=== PATIENT | female | born 1955 ===

== ENCOUNTER 2021-08-31 19:35 | Inpatient (IN) | payer MEDICARE, MEDICAID, SELFPAY ==
--- NOTE | ~2021-08-31 | XR_ITS ---
EXAMINATION: XR chest ET placement INDICATION: Endotracheal tube placement TECHNIQUE: Portable AP chest at 0626 hours COMPARISON: 0545 hours FINDINGS: The endotracheal tube has been inserted and ends approximately 3 cm above the partha. Diffu se opacities persist throughout all lung zones without significant change. There is no pleural effusi on or pneumothorax. The cardiomediastinal silhouette is stable. IMPRESSION: 1. Endotracheal tube inserted and ending approximately 3 cm above the partha. 2. Diffuse lung disease, consistent with pneumonia and/or pulmonary edema. Reviewed, dictated and finalized at location A. REEL CUTTER
--- NOTE | ~2021-08-31 | XR_ITS ---
EXAMINATION: XR chest 1V portable INDICATION: COVID pneumonia TECHNIQUE: Portable AP chest at 1323 hours COMPARISON: 09/02/2021 FINDINGS: The endotracheal tube ends approximately 2.2 cm above the partha. The nasogastric tube is f ollowed as far as the stomach. Its tip is beyond the inferior margin of the radiograph. Diffuse opaci ties persist throughout all lung zones with slight improvement. There is no pleural effusion or pneum othorax. The cardiomediastinal silhouette is normal. IMPRESSION: 1. Diffuse lung disease with interval improvement, consistent with pneumonia and/or pulmonary. Reviewed, dictated and finalized at location A. CH ENGINE OPTIMIZER IMPRESSION: 1. Diffuse lung disease with interval improvement, consistent with pneumonia an d/or pulmonary.
--- NOTE | ~2021-08-31 | XR_ITS ---
EXAMINATION: XR chest 1V portable DATE: 09/07/2021 10:29 INDICATION: COVID-19 pneumonia. TECHNIQUE: A single frontal view of the chest was obtained. COMPARISON: Chest single view 09/05/2021 FINDINGS: There are airspace and interstitial opacities throughout the lungs bilaterally. No pleural effusion or pneumothorax. Cardiomegaly is noted. The endotracheal tube tip is 3.6 cm above the partha . The nasogastric tube tip is beyond the inferior margin of the radiograph, but at least to the stoma ch. IMPRESSION: 1. Stable diffuse lung disease, consistent with COVID-19 pneumonia. 2. Cardiomegaly. Reviewed, dictated and finalized at location A. OMER SUPPORT AGENT
--- NOTE | ~2021-08-31 | US_ITS ---
EXAMINATION: US venous doppler LE EXAM DATE: 09/01/2021 10:13 INDICATION: Pulmonary embolism. TECHNIQUE: Multiple grayscale, color flow and Doppler images of the lower extremity deep venous syste ms bilaterally were obtained and reviewed. There is no prior study for comparison. FINDINGS: Right side: The right common femoral, femoral and profunda veins demonstrate normal color flow, respi ratory variation, augmentation and compressibility. Compressibility, color flow confirmed within the right popliteal, posterior tibial, peroneal, and greater saphenous veins. Left side: The left common femoral, femoral and profunda veins demonstrate normal color flow, respira tory variation, augmentation and compressibility. Compressibility, color flow confirmed within the l eft popliteal, posterior tibial, peroneal, and greater saphenous veins. IMPRESSION: 1. No lower extremity deep venous thrombosis bilaterally. Reviewed, dictated and finalized at location B. IANCE SERVICE SUPERVISOR
--- NOTE | ~2021-08-31 | XR_ITS ---
EXAMINATION: XR chest 1V portable DATE: 09/05/2021 10:45 INDICATION: COVID-19 pneumonia. TECHNIQUE: A single frontal view of the chest was obtained. COMPARISON: Chest single view 09/04/2021, chest CT 09/01/2021 FINDINGS: There are airspace and interstitial opacities throughout the lungs bilaterally. No pleural effusion or pneumothorax. Cardiomegaly is noted. The endotracheal tube tip is 2.3 cm above the partha . The nasogastric tube tip is beyond the inferior margin of the radiograph, but at least to the stoma ch. IMPRESSION: 1. Stable diffuse lung disease, consistent with COVID-19 pneumonia. 2. Cardiomegaly. Reviewed, dictated and finalized at location A. TH PROMOTION OFFICER
--- NOTE | ~2021-08-31 | XR_ITS ---
EXAMINATION: XR abdomen NG/feed tube insert INDICATION: OG placement TECHNIQUE: Portable AP KUB-NG at 0743 hours COMPARISON: 09/02/2021 FINDINGS: The endotracheal tube ends approximately 4.8 cm above the partha. The OG tube is in the sto mach. Diffuse interstitial and airspace opacities are present throughout all lung zones. Cardiomegaly is noted. Density in the right upper quadrant could reflect retained contrast material within a dila judi right collecting system. IMPRESSION: 1. OG tube in the stomach. 2. Diffuse lung disease, consistent with pneumonia/or pulmonary edema. Reviewed, dictated and finalized at location A. IANCE TESTER
--- NOTE | ~2021-08-31 | CT_ITS ---
EXAMINATION: CTA chest PE protocol DATE: 09/01/2021 18:37 LEADERSHIP DEVELOPMENT MANAGER INDICATION: Evaluate for pulmonary embolism. Shortness of breath. Covid. Cough. TECHNIQUE: Computed tomographic angiography (CTA) of the chest was performed with 100 mL Omnipaque-35 0 intravenous contrast. The dose-length product was 938.65 mGy-cm. Maximum intensity projection 3D-re constructions of the aorta and other arteries were constructed by the technologist on a separate work station. Automated exposure control and iterative reconstruction technique were employed. COMPARISON: Nuclear medicine pulmonary perfusion scan dated 08/31/2021 and chest x-ray dated 08/31/20 21. FINDINGS: Study is technically adequate without evidence for pulmonary embolism. Enlarged pulmonary a rteries. Cardiomegaly. No thoracic lymphadenopathy. No significant pleural or pericardial effusion. T here are gallstones. There is bilateral renal atrophy with nonobstructing left renal stones. There is extensive bilateral airspace disease with patchy configuration, compatible with pneumonia. IMPRESSION: 1. No evidence for pulmonary embolism. 2: Extensive patchy bilateral airspace disease, compatible with pneumonia. 3: Cardiomegaly. 4: Pulmonary arterial hypertension. 5: Cholelithiasis. 6: Severe bilateral renal atrophy with nonobstructing left renal stones. Reviewed, dictated and finalized at location A. ERSHIP DEVELOPMENT MANAGER
--- NOTE | ~2021-08-31 | NM_ITS ---
NM pulmonary perfusion INDICATION: Elevated d-dimer. Shortness of breath. TECHNIQUE: Ventilation scan, 3 mCi Tc 99m MAA was injected intravenously for perfusion images. Multi ple images were then acquired. COMPARISON: Chest x-ray dated 08/31/2021 FINDINGS: The comparison chest x-ray demonstrates extensive bilateral airspace disease, compatible wi th pneumonia. The perfusion scan demonstrates slight small and moderate size perfusion abnormalities of the left upper lobe with corresponding chest x-ray findings. No significant perfusion abnormalitie s of the right lung clear. IMPRESSION: 1: Small-moderate perfusion abnormalities of the left upper lobe with corresponding chest x-ray abnor malities. Intermediate probability for pulmonary embolism. Reviewed, dictated and finalized at location A. SUPPORT ENGINEER IMPRESSION: 1: Small-moderate perfusion abnormalities of the left upper lobe with correspon ding chest x-ray abnormalities. Intermediate probability for pulmonary embolism .
--- NOTE | ~2021-08-31 | XR_ITS ---
XR chest 1V portable 08/31/2021 19:58 Indication: Shortness of breath and cough. Covid. Procedure: AP portable chest Comparison: Comparison to multiple prior studies sequentially, with oldest reviewed study dated 01/28. Findings: Patchy bilateral airspace disease, compatible with pneumonia. Small left pleural effusion. No pneumothorax. No acute osseous abnormality. Impression: 1: Developing patchy bilateral pneumonia. Reviewed, dictated and finalized at location A. CIATE MEDIA DIRECTOR Impression: 1: Developing patchy bilateral pneumonia.
--- NOTE | ~2021-08-31 | XR_ITS ---
XR chest 1V portable 09/09/2021 10:46 Indication: Respiratory failure Procedure: AP portable chest Comparison: Comparison to multiple prior studies sequentially, with oldest reviewed study dated 08/19. Findings: Endotracheal tube tip 5.6 cm above the partha. NG tube in the stomach. Unchanged diffuse bi lateral airspace disease, compatible with pneumonia. Cardiomegaly. No significant effusion or pneumot horax. No acute osseous abnormality. Impression: 1: Stable diffuse bilateral airspace disease, compatible with pneumonia. Reviewed, dictated and finalized at location A. LLENCE LEADER Impression: 1: Stable diffuse bilateral airspace disease, compatible with pneumonia.
--- NOTE | ~2021-08-31 | XR_ITS ---
EXAMINATION: XR chest 1V portable INDICATION: COVID pneumonia, respiratory failure TECHNIQUE: Portable AP chest at 0958 hours COMPARISON: 09/03/2021 FINDINGS: The endotracheal tube ends approximately 3.1 cm above the partha. The nasogastric tube is f ollowed as far as the stomach. Its tip is beyond the inferior margin of the radiograph. Diffuse inter stitial and airspace opacities persist with slight worsening on the left. There is no pleural effusio n or pneumothorax. The cardiomediastinal silhouette is stable. IMPRESSION: 1. Diffuse lung disease with interval worsening on the left, consistent with pneumonia and/or pulmona ry edema. Reviewed, dictated and finalized at location A. PROTECTION ENGINEERING TECHNICIAN IMPRESSION: 1. Diffuse lung disease with interval worsening on the left, consistent with pn eumonia and/or pulmonary edema.
--- NOTE | ~2021-08-31 | XR_ITS ---
EXAMINATION: XR chest 1V portable INDICATION: Hypoxia TECHNIQUE: Portable AP chest at 0545 hours COMPARISON: 08/31/2021 FINDINGS: Diffuse airspace opacities persist throughout all lung zones with interval worsening. There is no pleural effusion or pneumothorax. The cardiomediastinal silhouette is normal. IMPRESSION: 1. Diffuse lung disease with interval worsening, consistent with pneumonia and/or pulmonary edema. Reviewed, dictated and finalized at location A. NEYMAN ELECTRICIAN PV INSTALLER IMPRESSION: 1. Diffuse lung disease with interval worsening, consistent with pneumonia and/ or pulmonary edema.
--- NOTE | ~2021-08-31 | XR_ITS ---
EXAMINATION: XR chest 1V portable DATE: 09/08/2021 10:58 INDICATION: Respiratory failure. TECHNIQUE: A single frontal view of the chest was obtained. COMPARISON: Chest single view 09/07/2021 FINDINGS: There are airspace and interstitial opacities throughout the lungs bilaterally. No pleural effusion or pneumothorax. Cardiomegaly is noted. The endotracheal tube tip is 6.6 cm above the partha . The nasogastric tube tip is beyond the inferior margin of the radiograph, but at least to the stoma ch. IMPRESSION: 1. Stable diffuse lung disease, consistent with COVID-19 pneumonia. 2. Cardiomegaly. Reviewed, dictated and finalized at location A. SETTER
[2021-08-31 19:36] VITALS: BP 111/53; PULSE 74; RESP 27; TEMP 37.9; O2SAT 82
[2021-08-31 19:47] VITALS: O2SAT 92
--- NOTE | 2021-08-31 19:50 | ED.GENADULT ---
HPI - General Adult General Chief complaint: Shortness of Breath/Dyspnea Stated complaint: hypoxic History of Present Illness HPI narrative: 66-year-old female presented to emergency department for evaluation of shortness of breath after suspected Covid exposure. Patient is normally on 2 to 3 L of oxygen at home. He states that the patient had been increasingly confused today and when they checked her oxygen it was in the 50s. For this reason family called EMS when EMS arrived they placed the patient on oxygen she was in the 80s on room air. Patient arrived to the emergency department with a nonrebreather saturating in the low 90s. Raquel states as the patient received more oxygen became less confused. Upon arrival to the emergency department patient was alert and appropriate. Patient did report associated shortness of breath but denies any chest pain. Related Data Allergies Allergy/AdvReac Type Severity Reaction Status Date / Time acetaminophen Allergy Mild Unknown Verified 08/31/21 19:50 codeine Allergy Mild Unknown Verified 08/31/21 19:50 propoxyphene Allergy Mild Unknown Verified 08/31/21 19:50 Review of Systems Review of Systems: CONSTITUTIONAL: Patient does report chills and subjective fever EYES: Denies visual changes, redness, or discharge. ENT: Denies rhinorrhea, congestion, sore throat, or otalgia. CARDIOVASCULAR: Denies chest pain, palpitations, or edema. RESPIRATORY: Does report worsening shortness of breath. GASTROINTESTINAL: Denies abdominal pain, nausea, vomiting, or diarrhea. GENITOURINARY: Denies dysuria or hematuria. SKIN: Denies rash or itching. MUSCULOSKELETAL: Denies back pain, joint pain, or myalgia. NEUROLOGIC: Denies headache, numbness, or weakness. PSYCHIATRIC: Did have some confusion but improved with oxygenation. Exam Narrative: APPEARANCE: Well appearing, no pain in distress, well-nourished. Head normocephalic atraumatic. EYES: PERRLA/EOMI, conjunctivae very clear. NOSE: Normal no drainage EARS:TMS clear Alicia Robin, with good light reflex. THROAT: Pharynx clear, no exudate. NECK: Supple. No adenopathy, no masses. RESPIRATORY: Airway patent, respirations nonlabored on the nonrebreather. Clear to auscultation bilaterally, no rales, rhonchi, wheezing. CARDIOVASCULAR: Regular rate and rhythm without murmurs rubs or gallops. ABDOMINAL: Soft, nontender, nondistended, no hepatosplenomegally MUSCULOSKELETAl: Moves all extremities. Strenght/ROM intact, No edema, No calf tenderness. NEURO: Alert. Cranial nerves II through XII intact. Good gait. Good coordination SKIN:: Warm, dry. Normal Color PSYCHIATRIC: Normal affect/mood Course Course Emergency Course: 66-year-old female presented emerge department for evaluation of worsening hypoxia at home. Patient oxygenation did improve when she was placed on the nonrebreather. Patient was transferred to heated high flow so she could eat. D-dimer was ordered and was elevated. Patient does have history of kidney transplant and was not suitable for CT with IV contrast. For this reason VQ scan was performed. VQ scan was resulted as intermediate probability and patient was started on 1 milligram per kilogram subcu Lovenox. Patient was updated on the results and plan for admission. Case was discussed with the hospitalist and they are comfortable with the plan for admission to IMU Vital Signs Vital signs: Vital Signs Temperature 100.2 F H 08/31/21 19:36 Pulse Rate 74 08/31/21 19:36 Respiratory Rate 27 H 08/31/21 19:36 Blood Pressure 111/53 L 08/31/21 19:36 Pulse Oximetry 82 L 08/31/21 19:36 Temperature 98.3 F 09/01/21 00:20 Pulse Rate 66 09/01/21 00:20 Respiratory Rate 23 H 09/01/21 00:20 Blood Pressure 129/66 09/01/21 00:20 Pulse Oximetry 90 09/01/21 00:50 Medical Decision Making [facility] Narrative Medical decision making narrative: Patient does report Covid exposure and a family member that tested positive. X-ray was concerning for Covid pne
[2021-08-31 20:14] LABS: Basophils Percent Auto 0.2 % (0.2-1.2); Hematocrit 37.4 % (37.0-47.0); Hemoglobin 12.1 g/dL (12.0-15.0); Immature Granulocyte Absolute 0.03 K/mm3 (0.00-0.031); Immature Granulocyte Percent A 0.6 % (0-0.5); Lymphocytes Absolute Auto 0.88 K/mm3 (0.9-3.2); Lymphocytes Percent Auto 17.1 % (18.3-44.2); Mean Corpuscular HGB Conc 32.4 g/dl (32-36); Mean Corpuscular Hemoglobin 31.1 pg (26-34); Mean Corpuscular Volume 96.1 fl (80-100); Mean Platelet Volume 10.5 fl (7.4-10.4); Monocytes Absolute Auto 0.5 K/mm3 (0.1-0.6); Monocytes Percent Auto 9.9 % (2.6-8.5); Neutrophils Absolute Auto 3.7 K/mm3 (1.3-6.7); Neutrophils Percent Auto 72.2 % (45.5-73.1); Platelet Count Result 168 k/mm3 (150-375); Red Blood Count 3.89 M/mm3 (4.2-5.4); Red Cell Distribution Width 13.5 % (11.5-14.5); White Blood Count 5.1 K/mm3 (4.5-10.0)
[2021-08-31 20:26] LABS: Alanine Aminotransferase 45 U/L (4-35); Alkaline Phosphatase 59 U/L (38-126); Anion Gap 14 mmol/L (8-16); Aspartate Amino Transferase 107 U/L (14-36); Bilirubin,Total 0.5 mg/dL (0.2-1.3); Blood Urea Nitrogen 26 mg/dL (7-17); Calcium 9.1 mg/dL (8.4-10.2); Carbon Dioxide 22 mmol/L (22-30); Chloride 99 mmol/L (98-107); Estimated CRCL calculation 55 ml/min; Estimated Glomerular Filt Rate 55; Glucose 132 mg/dL (65-110); Potassium 3.4 mmol/L (3.4-5.0); Sodium 135 mmol/L (137-145)
[2021-08-31 20:29] LABS: D Dimer 1.52 ug/mL (<0.48); Lactate Dehydrogenase 767 U/L (313-618)
[2021-08-31] MEDS: DEXAMETHASONE 2 MG TABLET 6 MG PO (20:38)
[2021-08-31 20:51] VITALS: BP 114/61; PULSE 73; RESP 23; O2SAT 92
[2021-09-01] VITALS (25 sets, daily range): BP systolic 106–151; BP diastolic 47–68; PULSE 52–82; RESP 20–34; TEMP 35.9–37.2; O2SAT 88–98; BMI 34.4
[2021-09-01] MEDS: ENOXAPARIN 100 MG/ML SYRINGE 94 MG SUB-Q (00:18)
--- NOTE | 2021-09-01 00:34 | PM.IMHP ---
H&P: HPI History of Present Illness Date/Time: 09/01/21 00:34 Chief Complaint: Shortness of breath Narrative: This is a 66-year-old female with past medical history significant for renal transplant, COPD, patient is also on CPAP at home, chronic hypoxic respiratory failure on 2-3 L supplemental oxygen by nasal cannula at home. Patient was brought to the emergency room via EMS after family became concerned for the patient's altered mental status she was confused hallucinating an a home O2 pulse ox showed desaturation into the 80s. On arrival to emergency room patient was on a non-rebreather mask saturating in the low 90s and still confused. At the time of my visit patient complaining of shortness of breath , cough. Patient is not able to give much history. Preliminary workup was significant for chest x-ray with diffuse bilateral lung infiltrates. Concerns were also for acute pulmonary embolism and patient underwent V/Q scan which was intermediate probability for acute pulmonary embolism. Decision has been made to admit the patient for further evaluation management and treatment. Review of Systems Review of Systems: The patient was brought to the emergency room due to altered mental status low oxygen saturation patient has been unable to give much history although she is more awake and alert however appears not to be fully aware of the events ROS unobtainable: Yes unobtainable due to medical condition PMFSH Family History Family History (Updated 09/01/21 @ 04:01 by Madalyn Portillo RN) Other Unknown family medical history Social History Social History Smoking status: Never smoker Alcohol intake: unknown Substance use: unknown Spiritual care concerns: No Meds Home Medications and Allergies Home Medications Medication Instructions Recorded Confirmed Type alprazolam 0.5 mg PO Q8H PRN 09/01/21 09/01/21 History amlodipine 10 mg PO QAM 09/01/21 09/01/21 History escitalopram oxalate 20 mg PO DAILY 09/01/21 09/01/21 History fluticasone propionate 2 spray INTRANASAL DAILY 09/01/21 09/01/21 History hydrochlorothiazide 25 mg PO DAILY 09/01/21 09/01/21 History hydrocodone-acetaminophen 1 tablet PO Q6H PRN 09/01/21 09/01/21 History losartan 50 mg PO DAILY 09/01/21 09/01/21 History mycophenolate sodium 360 mg PO BID 09/01/21 09/01/21 History omeprazole 20 mg PO DAILY 09/01/21 09/01/21 History oxybutynin chloride 5 - 10 mg PO HS 09/01/21 09/01/21 History potassium chloride 20 meq PO BID 09/01/21 09/01/21 History tacrolimus 1 mg PO BID 09/01/21 09/01/21 History umeclidinium-vilanterol [Anoro 1 inh INHALATION DAILY 09/01/21 09/01/21 History Ellipta] Allergies Allergy/AdvReac Type Severity Reaction Status Date / Time acetaminophen Allergy Mild Unknown Verified 08/31/21 19:50 codeine Allergy Mild Unknown Verified 08/31/21 19:50 propoxyphene Allergy Mild Unknown Verified 08/31/21 19:50 ibuprofen AdvReac Other Verified 09/01/21 02:19 naproxen AdvReac Other Verified 09/01/21 02:19 Vital Signs Vital Signs - 24 hr 08/31/21 19:36 08/31/21 19:47 08/31/21 20:51 Temperature 100.2 F H Pulse Rate 74 73 Respiratory Rate 27 H 23 H Blood Pressure 111/53 L 114/61 Pulse Oximetry 82 L 92 92 09/01/21 00:20 Temperature 98.3 F Pulse Rate 66 Respiratory Rate 23 H Blood Pressure 129/66 Pulse Oximetry 93 Exam Narrative: Patient is laying in [facility] Const: General: comfortable, well developed, alert, awake, acute distress mild and ill appearing Nutritional Appearance: average body habitus Orientation/consciousness: oriented to person and oriented to place Limitations: altered mental status Other: Somewhat delirious HENMT: Head: normal to inspection, normocephalic and atraumatic Ears: hearing grossly normal bilaterally General nose exam: Normal external nose present Face and sinus: normal facial exam Eyes: General: appearance normal, both eyes and all related structures Alignment and Position: alignment
--- NOTE | 2021-09-01 01:50 | PC.NURSE ---
This patient, Saira Lilly, was admitted to IMU Room 204-01. Patient/family oriented to hospital policies and general routines including ID bracelet, bed and alarms, visiting hours, pain management, procedures, bathroom and other care routines, personal items, smoking policy, room service/diet, and visiting hours. Information on how to activate the Rapid Response Team has been discussed. Patient/Family are encouraged to report perceived risks to care and to ask questions if they do not understand what they are told or what they should do.
[2021-09-01] MEDS: FUROSEMIDE INJ 40 MG/4 ML VIAL 10 MG IV PUSH (03:46)
[2021-09-01] MEDS: cefTRIAXone 2 GM in SODIUM CHLORIDE 0.9% IV 100 ML 200 ML IVPB (06:16)
[2021-09-01 06:50] LABS: Alanine Aminotransferase 56 U/L (4-35); Estimated CRCL calculation 68 ml/min; Estimated Glomerular Filt Rate > 60
[2021-09-01 07:03] LABS: NT Pro B Type Natriuretic Pept 717 pg/mL (5-100)
[2021-09-01 07:04] LABS: INR 1.1; Prothrombin Time 13.9 Seconds (11.1-14.7)
[2021-09-01] MEDS: UMECLIDINIUM/VILANTEROL 62.5-25 MCG ELLIPTA 1 PUFF INHALATION (08:34)
[2021-09-01] MEDS: POTASSIUM CHLORIDE 20 MEQ TABLET.ER PO ×2 (09:30→17:02)
[2021-09-01] MEDS: ESCITALOPRAM OXALATE 10 MG TABLET 20 MG PO (09:30)
[2021-09-01] MEDS: REMDESIVIR 200 MG/NS 250 ML 200 MG/250 ML BAG 250 MG IVPB (09:30)
[2021-09-01] MEDS: FLUTICASONE PROPIONATE 0.05% NA SPR 16 GM BTL (*BKC) 2 SPRAY NASAL (09:30)
[2021-09-01] MEDS: PANTOPRAZOLE 40 MG TABLET PO ×2 (09:30→17:02)
--- NOTE | 2021-09-01 09:43 | PM.IMPN ---
Progress Note: A&P Assessment and Plan (1) Acute and chronic respiratory failure with hypoxia: Code(s): J96.21 - Acute and chronic respiratory failure with hypoxia Status: Acute Assessment and Plan: Admit to IMU Placed on BiPAP Try and keep saturation 92-94% At baseline, patient is usually on 2-3 L by nasal cannula Continuous pulse ox Continuous telemetry Per currently patient is on BiPAP requiring very large volumes of oxygen. By virtue of her kidney transplant and immunosuppressive therapy is at very high risk and will consult the Pulmonary Service to help with her management. (2) Pneumonia due to COVID-19 virus: Code(s): U07.1 - COVID-19; J12.82 - Pneumonia due to coronavirus disease 2018 Status: Acute Assessment and Plan: Patient started on remdesivir and dexamethasone Added Zithromax and Rocephin for antibacterial coverage superinfection Patient is also on tacrolimus and mycophenolate mofetil. I have contacted the kidney transplant team at bedside spoke with Dr. Rosaura Mirza. We will hold the MMF for 2 weeks. Convalescent plasma Supportive care (3) Transplanted kidney: Code(s): Z94.0 - Kidney transplant status Status: Acute Assessment and Plan: Excellent allograft function with baseline creatinine of 0.8. Home regimen includes prednisone 5 mg p.o. daily, tacrolimus 1 mg p.o. b.i.d., and MMF 360 mg p.o. b.i.d.. Currently patient is acutely ill with a strong suspicion for an acute viral illness and possibly COVID-19 pneumonia. We will hold the MMF. For 2 weeks. Daily BMP Avoid nephrotoxins Patient is scheduled for kidney stone removal on October 08, 2021 at [place]. (4) COPD (chronic obstructive pulmonary disease): Code(s): J44.9 - Chronic obstructive pulmonary disease, unspecified Status: Acute Assessment and Plan: Start Pulmicort. Continue albuterol and ipratropium nebulization. Follow-up pulmonary recommendations. Breathing treatments (5) Pulmonary embolism: Qualifiers: Acute cor pulmonale presence: without acute cor pulmonale Chronicity: acute Pulmonary embolism type: unspecified Qualified Code(s): I26.99 - Other pulmonary embolism without acute cor pulmonale Code(s): I26.99 - Other pulmonary embolism without acute cor pulmonale Status: Acute Assessment and Plan: Patient with intermediate probability V/Q scan. Her kidney function function is adequate, with a creatinine of 0.8. We order this CT angiogram. Echocardiogram has been ordered and is pending at the time of this dictation. Continue Lovenox at therapeutic dose. Subjective Date/time seen: 09/01/21 09:43 Narrative.This is a 66-year-old female with past medical history significant for renal transplant, COPD, patient is also on CPAP at home, chronic hypoxic respiratory failure on 2-3 L supplemental oxygen by nasal cannula at home. Patient was brought to the emergency room via EMS after family became concerned for the patient's altered mental status she was confused hallucinating an a home O2 pulse ox showed desaturation into the 80s. On arrival to emergency room patient was on a non-rebreather mask saturating in the low 90s and still confused. At the time of my visit patient complaining of shortness of breath , cough. Patient is not able to give much history. Preliminary workup was significant for chest x-ray with diffuse bilateral lung infiltrates. Concerns were also for acute pulmonary embolism and patient underwent V/Q scan which was intermediate probability for acute pulmonary embolism. Decision has been made to admit the patient for further evaluation management and treatment. S: Patient was examined at the bedside. She is breathing comfortably on the BiPAP. She was complaining of nasal drip. No other active complaints. Review of Systems Review of Systems: All systems reviewed & are unremarkable except as noted in HPI and below Constitutional:
[2021-09-01] MEDS: predniSONE 5 MG TABLET PO (12:30)
--- NOTE | 2021-09-01 12:44 | PM.CNPUL ---
Assessment and Plan Assessment and plan (1) Hypoxia: Code(s): R09.02 - Hypoxemia Status: Acute Assessment and Plan: Patient has a history of renal transplantation on mycophenolate and tacrolimus and prednisone 5 mg p.o. q.day, carries a diagnosis of COPD on home oxygen and on CPAP at home. I have no medical records at our institution. Currently the patient is in hypoxic respiratory failure on BiPAP rate of 14, pressure is 12/8 and 90% FiO2. I will check a blood gas to assess her oxygenation and ventilation. Patient is currently being treated for bacterial pneumonia with ceftriaxone and azithromycin. Patient Has been exposed to COVID and is currently being treated for COVID pneumonia with dexamethasone, Remdesivir and convalescent plasma given that she is a renal transplant patient. her mycophenolate has been held after discussion was her renal transplant team. I agree with these treatments for now while waiting for her COVID RT PCR study to return. if her COVID test should return positive she would qualify for tocilizumab. Positive D dimer with intermediate perfusion scan. Agree with CTA. Will send influenza swab. An echocardiogram has been a ordered, her BNP is 717. Regarding her history of COPD she currently has no wheezes and I will continue her Anoro Ellipta at 1 puff q.day. Will follow with you. History of Present Illness History of Present Illness Consult date: 09/01/21 Requesting physician: Tenisha Ko MD Reason for consult: hypoxemia Chief complaint: PE, hypoxia, possible covid Narrative: 09/01/2021: This is a new Pulmonary consult for hypoxic respiratory failure 66-year-old woman with a history of renal transplant about 12 years ago, COPD on 2-3 L nasal cannula oxygen at home, on CPAP at home who was brought to the emergency department on 08/31 for altered mental status, shortness of breath, cough and hypoxemic respiratory failure. per the nursing report patient was exposed to family members that have COVID and the patient tells me her sister had a respiratory illness along with her over the last 3 or 4 days but the patient was unsure if the patient had COVID. The patient's cousin did have COVID. Patient had a white count of 5.1, creatinine of 1.00 a D-dimer 1.52. Patient had a V/Q scan was which was indeterminate for pulmonary embolism. Patient was started on dexamethasone empirically on 08/31 and REM test severe on 09/01. The renal consult team was contacted by the hospitalist and they recommended convalescent plasma which has been ordered. Her COVID RT PCR test is pending. Patient was also started on ceftriaxone and azithromycin. Patient was admitted to the floor and had worsening hypoxemic respiratory failure requiring BiPAP. I was consulted. Patient is currently on BiPAP with set rate of 14, pressures of 12/8, inspiratory time 0.8, 90% FiO2 with saturations 91% and a tidal volume of 517. Patient did say she is comfortable on these current BiPAP settings. Review of Systems Review of Systems: ROS unobtainable: Yes unobtainable due to medical condition PMFSH Family History Family History (Updated 09/01/21 @ 04:01 by Madalyn Portillo RN) Other Unknown family medical history Social History Social History Smoking status: Never smoker Alcohol intake: unknown Substance use: unknown Spiritual care concerns: No Meds Home Medications and Allergies Home Medications Medication Instructions Recorded Confirmed Type alprazolam 0.5 mg PO Q8H PRN 09/01/21 09/01/21 History amlodipine 10 mg PO QAM 09/01/21 09/01/21 History escitalopram oxalate 20 mg PO DAILY 09/01/21 09/01/21 History fluticasone propionate 2 spray INTRANASAL DAILY 09/01/21 09/01/21 History hydrochlorothiazide 25 mg PO DAILY 09/01/21 09/01/21 History hydrocodone-acetaminophen 1 tablet PO Q6H PRN 09/01/21 09/01/21 History losartan 50 mg PO DAILY 09/01/21 09/01/21 History mycophenolat
[2021-09-01 15:19] LABS: Alveolar/Arterial O2 Gradient 529.2 mmHg; Base Excess ABG 2.1 mEq/l (+/-2.0); Fractional Inspired Oxygen 90 %; HCO3 ABG 27.9 mEq/l (22.0-26.0); Oxygen Content ABG 16.7 %vol (16.0-22.0); Oxygen Saturation ABG 91.7 % (95.0-100.0); Oxyhemoglobin 91.1 % THb (90.0-100.0); PO2 ABG 63.3 mmHg (80.0-100.0); pH ABG 7.382 (7.350-7.450)
[2021-09-01 15:21] LABS: Device BIPAP; Expiratory Pressure 8 cmH2O; Inspiratory Pressure 12 cmH2O; Modified Allen's Test Pass; Site Drawn RIGHT RADIAL
[2021-09-01] MEDS: SODIUM CHLORIDE 0.9% IV 1,000 ML 100 ML IV CONT (15:34)
[2021-09-01] MEDS: ALPRAZolam (*CRX) 0.5 MG TABLET PO (20:36)
[2021-09-01] MEDS: OXYBUTYNIN CHLORIDE 5 MG TABLET 10 MG PO (20:36)
[2021-09-01] MEDS: ENOXAPARIN 40 MG/0.4 ML SYRINGE SUB-Q (20:37)
[2021-09-02] VITALS (39 sets, daily range): BP systolic 70–130; BP diastolic 40–61; PULSE 43–84; RESP 16–45; TEMP 36.2–37.9; O2SAT 69–100; BMI 33.4
[2021-09-02 02:02] LABS: SARS-CoV-2 RNA PCR Positive
[2021-09-02] MEDS: cefTRIAXone 2 GM in SODIUM CHLORIDE 0.9% IV 100 ML 200 ML IVPB (04:55)
[2021-09-02 05:29] LABS: Alveolar/Arterial O2 Gradient 623.7 mmHg; Base Excess ABG -2.2 mEq/l (+/-2.0); Carboxyhemoglobin 0.3 % THb (0-2.0); Fractional Inspired Oxygen 100 %; HCO3 ABG 23.4 mEq/l (22.0-26.0); Methemoglobin ABG 0.3 %THb (0-1.5); Oxygen Content ABG 14.6 %vol (16.0-22.0); PCO2 ABG 43.3 mmHg (35.0-45.0); PO2 FiO2 Ratio Arterial Blood 0.46 %; Reduced Hemoglobin 19.6 %THb (0-5.0); pH ABG 7.351 (7.350-7.450)
[2021-09-02 05:30] LABS: Oxygen Saturation ABG 79.8 % (95.0-100.0)
[2021-09-02 05:31] LABS: Device BIPAP; Oxyhemoglobin 79.8 % THb (90.0-100.0); Site Drawn RIGHT RADIAL
--- NOTE | 2021-09-02 06:17 | PC.NURSE ---
patient o2 sats started to drop and maintain in the high 70's, low 80's since a little after 5am. patient has been up and down on o2 sats all night. patient was starting to be restless, respirations in the upper 30's to low 40's. dr zapata is aware and in room with respiratory therapy to try to improve o2 status by changing up the settings on bipap. patient still was not recovering. stat abg's charted and stat cxray was done. dr zapata called dr forde from er to intubate patient. he spoke with the intisivist and they decided to move to icu for intubation. spoke with daughter and she wanted her moved to [place]. she felt like we are not able to properly treat covid patients here.
[2021-09-02] MEDS: FENTANYL 2,500MCG/NS250ML(*CRX 2,500 MCG/250 ML BAG IV CONT (06:25)
[2021-09-02] MEDS: MIDAZOLAM 100MG/NS 100ML(*CRX) 100 MG/100 ML BAG IV CONT (06:25)
--- NOTE | 2021-09-02 06:40 | ED.PROCEDURE ---
Procedures Intubation Intubation Date: 09/02/21 Intubation Time: 06:15 Consent: Verbal consent obtained Sedative: etomidate Mg given: 40 Paralytic: succinylcholine Mg given: 150 Laryngoscope: fiber optic video scope ET tube size: 7.5 Tube secured depth (cm): 23 Tube secured location: teeth Tube placement confirmation: visualized tube passing through cords, equal breath sounds bilaterally, no breath sounds over epigastrium and confirmation by capnometry Patient tolerated procedure: well Intubation complications: none Additional comments: Is counseled at bedside for patient and respiratory distresss. She has a known Covid positive patient with a history of COPD and renal transplant immune modulators. Patient's had increased respiratory effort this morning with limited benefits from CPAP patient continued to saturate into 70s. Given her respiratory distress was called to the bedside for intubation. Patient was given 30 of etomidate and 100 of succinylcholine initial [address] Diaz. It was a difficult airway due to body habitus. Patient began waking up she was given additional 10 of etomidate and 50 of succinylcholine. I performed the third attempt with successful intubation. Portable x-ray obtained ET tube appeared high after portable x-ray is obtained ET tube was moved 1 cm deeper. This was consulted who will assist with sedation and ventilation management.
--- NOTE | 2021-09-02 06:49 | P.PNCROSS_ITS ---
Event Note Event Note Event Note: Called by RN approximately at around 6:00 a.m. for hypoxia which started all of sudden down to 80s patient on 100% FiO2 BiPAP at 12/8 patient with mild to moderate respiratory distress. BiPAP settings were changed to improve ventilation by changes setting to 16/8 however patient remained hypoxic. ABG with PO2 of 46 chest x-ray with diffuse bilateral opacities which has worsened. She also has tested positive for COVID. Discussed with the patient with regard to intubation and mechanical ventilation. She is agreeable with the intubation if needed. Discussed with chief human resources officer Dr. Mistry and moved the patient to the ICU 5. Dr. Harrington in the ER was contacted for emergent intubation. Patient was placed on mechanical ventilation and was sedated with fentanyl and Versed drip. Dr. Mistry he was updated on her status. Critical care time 45 minutes
[2021-09-02 07:02] LABS: Basophils Percent Auto 0.2 % (0.2-1.2); Hematocrit 39.2 % (37.0-47.0); Hemoglobin 12.2 g/dL (12.0-15.0); Immature Granulocyte Absolute 0.04 K/mm3 (0.00-0.031); Immature Granulocyte Percent A 0.6 % (0-0.5); Lymphocytes Absolute Auto 0.58 K/mm3 (0.9-3.2); Lymphocytes Percent Auto 8.8 % (18.3-44.2); Mean Corpuscular HGB Conc 31.1 g/dl (32-36); Mean Corpuscular Hemoglobin 31.1 pg (26-34); Mean Platelet Volume 10.7 fl (7.4-10.4); Monocytes Absolute Auto 0.4 K/mm3 (0.1-0.6); Monocytes Percent Auto 5.6 % (2.6-8.5); Neutrophils Absolute Auto 5.6 K/mm3 (1.3-6.7); Neutrophils Percent Auto 84.8 % (45.5-73.1); Platelet Count Result 170 k/mm3 (150-375); Red Blood Count 3.92 M/mm3 (4.2-5.4); Red Cell Distribution Width 13.8 % (11.5-14.5); White Blood Count 6.6 K/mm3 (4.5-10.0)
[2021-09-02] MEDS: SODIUM CHLORIDE 0.9% IV 1,000 ML 999 ML IV CONT ×2 (07:30→10:00)
--- NOTE | 2021-09-02 07:45 | PC.NURSE ---
This patient, Saira Lilly, was received from [ [phone]] on 09/02/21 at 0605. Patient/family oriented to unit policies and routines
--- NOTE | 2021-09-02 07:45 | PC.NURSE ---
Patient brought over on BIPAP from IMU, Respiratory, Dr Lo and Dr Harrington in room to intubate.
[2021-09-02] MEDS: RAPID SEQUENCE INTUBATION KIT 1 EACH (07:50)
[2021-09-02] MEDS: CISATRACURIUM BESYLATE 200 MG in DEXTROSE 5% 80 ML 8.21 ML IV CONT ×2 (08:29→17:20)
[2021-09-02] MEDS: CISATRACURIUM BESYLATE 20 MG/10 ML VIAL 13.7 MG IV PUSH (08:30)
[2021-09-02] MEDS: NOREPINEPHRINE 8 MG/D5W 250 ML 8 MG/250 ML BAG 9.38 MG IV CONT (09:45)
[2021-09-02 10:08] LABS: Alveolar/Arterial O2 Gradient 578.6 mmHg; Base Excess ABG -1.8 mEq/l (+/-2.0); Fractional Inspired Oxygen 100 %; HCO3 ABG 23.3 mEq/l (22.0-26.0); Oxygen Content ABG 16.5 %vol (16.0-22.0); Oxyhemoglobin 95.4 % THb (90.0-100.0); PCO2 ABG 40.5 mmHg (35.0-45.0); PO2 ABG 93.9 mmHg (80.0-100.0); PO2 FiO2 Ratio Arterial Blood 0.94 %; Total Hemoglobin 12.2 g/dL (12.0-18.0); pH ABG 7.377 (7.350-7.450)
[2021-09-02 10:09] LABS: Arterial Blood Gas Ventilator rate 14 /MIN; Device VENTILATOR; Modified Allen's Test Pass; Site Drawn RIGHT RADIAL
[2021-09-02 10:10] LABS: Arterial Blood Gas PEEP 14 cmH2O; Arterial Blood Gas Pressure Support 0 cmH2O; Arterial Blood Gas Tidal Volume 350 ml; Arterial Blood Gas Vent Mode CMV; Peak Inspiratory Pressure 0 cmH2O
--- NOTE | 2021-09-02 10:11 | PM.PNPUL ---
Progress Note: A&P Assessment and Plan (1) Hypoxia: Code(s): R09.02 - Hypoxemia Status: Acute Assessment and Plan: 09/01 Patient has a history of renal transplantation on mycophenolate and tacrolimus and prednisone 5 mg p.o. q.day, carries a diagnosis of COPD on home oxygen and on CPAP at home. I have no medical records at our institution. Currently the patient is in hypoxic respiratory failure on BiPAP rate of 14, pressure is 12/8 and 90% FiO2. I will check a blood gas to assess her oxygenation and ventilation. Patient is currently being treated for bacterial pneumonia with ceftriaxone and azithromycin. Patient Has been exposed to COVID and is currently being treated for COVID pneumonia with dexamethasone, Remdesivir and convalescent plasma given that she is a renal transplant patient. her mycophenolate has been held after discussion was her renal transplant team. I agree with these treatments for now while waiting for her COVID RT PCR study to return. if her COVID test should return positive she would qualify for tocilizumab. Positive D dimer with intermediate perfusion scan. Agree with CTA. Negative influenza swab. An echocardiogram has been a ordered, her BNP is 717. Regarding her history of COPD she currently has no wheezes and I will continue her Anoro Ellipta at 1 puff q.day. 09/02 Patient is COVID positive and now intubated, paralyzed and in the prone position. ventilator management per the nailing machine feeder. Her Remdesivir and dexamethasone have been Restarted. Patient is Immunocompromised so tocilizumab or baricitinib will not be given. patient is Immunocompromised and NIH current treatment guidelines recommend neither for or against convalescent plasma. I have discussed this with the nailing machine feeder who will consider this treatment. Discussed with Dr. Mistry, will sign off for now, call with any questions Subjective Date/time seen: 09/02/21 10:11 Interval history: 09/01/2021: This is a new Pulmonary consult for hypoxic respiratory failure 66-year-old woman with a history of renal transplant about 12 years ago, COPD on 2-3 L nasal cannula oxygen at home, on CPAP at home who was brought to the emergency department on 08/31 for altered mental status, shortness of breath, cough and hypoxemic respiratory failure. per the nursing report patient was exposed to family members that have COVID and the patient tells me her sister had a respiratory illness along with her over the last 3 or 4 days but the patient was unsure if the patient had COVID. The patient's cousin did have COVID. Patient had a white count of 5.1, creatinine of 1.00 a D-dimer 1.52. Patient had a V/Q scan was which was indeterminate for pulmonary embolism. Patient was started on dexamethasone empirically on 08/31 and REM test severe on 09/01. The renal consult team was contacted by the hospitalist and they recommended convalescent plasma which has been ordered. Her COVID RT PCR test is pending. Patient was also started on ceftriaxone and azithromycin. Patient was admitted to the floor and had worsening hypoxemic respiratory failure requiring BiPAP. I was consulted. Patient is currently on BiPAP with set rate of 14, pressures of 12/8, inspiratory time 0.8, 90% FiO2 with saturations 91% and a tidal volume of 517. Patient did say she is comfortable on these current BiPAP settings. ABG 7.38/48/63. 09/02 patient had worsening hypoxemia overnight and is now intubated and in the prone position in the intensive care unit. Patient is COVID positive and her Remdesivir and dexamethasone have been Restarted. Patient is Immunocompromised so tocilizumab or baricitinib will not be given. Review of Systems Review of Systems: ROS unobtainable: Yes unobtainable due to endotracheal tube Exam Narrative: intubated and paralyzed inprovne position Const: General: no acute distress Neck: Neck: no JVD Resp: Auscultation: crackles, no rales, no r
[2021-09-02] MEDS: DEXAMETHASONE SOD PHOS INJ 4 MG/ML VIAL 6 MG IV PUSH (11:13)
--- NOTE | 2021-09-02 11:13 | WPDCNINT ---
Assessment and Plan Assessment and plan (1) Acute and chronic respiratory failure with hypoxia: Code(s): J96.21 - Acute and chronic respiratory failure with hypoxia Status: Acute Assessment and Plan: Acute Respiratory failure secondary to COVID-19 Intubated 09/02 Vent settings reviewed. I have decreased tidal volume to 350, increase rate to 22, peep is at 14 and FiO2 is at 100% Patient has been placed in prone position Sedated with Versed and fentanyl. Chemically paralyzed with Nimbex infusion Continue full mechanical ventilation support to prevent hypoxemia/hypercarbia and end organ damage. ABG and PCXR reviewed Low tidal volume ventilation strategy to prevent volutrauma Bronchodilators (2) Pneumonia due to COVID-19 virus: Code(s): U07.1 - COVID-19; J12.82 - Pneumonia due to coronavirus disease 2018 Status: Acute Assessment and Plan: SARS-CoV-2 PCR positive 08/31 on presentation Patient is in Airborne, Droplet and Contact Isolation Continue dexamethasone , remdesivir Continue antibiotics for empiric bacterial coverage with Rocephin azithromycin Follow inflammatory periodically I discussed case with Pulmonary Dr. Venegas. We discussed options of Baricitinib and Actemra but since patient is already Immunocompromised, will hold at this time (3) COPD (chronic obstructive pulmonary disease): Code(s): J44.9 - Chronic obstructive pulmonary disease, unspecified Status: Acute Assessment and Plan: Currently on mechanical ventilation Bronchodilators Also on steroids for COVID-19 (4) Transplanted kidney: Code(s): Z94.0 - Kidney transplant status Status: Acute Assessment and Plan: Continue Tacrolimus Prednisone has been changed to dexamethasone Mycophenolate was held as per consultation with Transplant pc support specialist at [facility] for next 2 weeks (5) Hypotension: Code(s): I95.9 - Hypotension, unspecified Status: Acute Assessment and Plan: Likely secondary to sedation and hypovolemia IV fluid bolus Levophed infusion Additional Plan DVT prophylaxis -Lovenox Stress ulcer prophylaxis -PPI Nutrition -start Tube Feeds Code Status -patient at this time is full code but her niece who is a POA states that patient may have advance directive stating that she is DNR. He is going to contact her primary care physician to obtain a copy of her advance directive and also look at home see if he can find a copy of advance directive. At this time patient is full code I updated her with overnight events, patient's current status and treatment plan. I answered all their questions Total Critical Care Time - 35 minutes except separately billed procedures Due to a high probability of clinically significant, life threatening deterioration, the patient required my highest level of preparedness to intervene emergently and I personally spent this critical care time directly and personally managing the patient. This critical care time included obtaining a history; examining the patient; pulse oximetry; ordering and review of studies; arranging urgent treatment with development of a management plan; evaluation of patient's response to treatment; frequent reassessment; and discussions with other providers. It was exclusive of separately billable procedures and treating other patients and teaching time. Please see Assessment and Plan section and the rest of the note for further information on patient assessment and treatment Frame Hand Consult Note Consult date: 09/02/21 HPI: Saira Lilly is a 66 year old female with a history of renal transplant about 12 years ago, COPD on 2-3 L nasal cannula oxygen at home, on CPAP at home who was brought to the emergency department on 08/31 for altered mental status, shortness of breath, cough and hypoxemic respiratory failure. Patient as per her niece is not vaccinated against COVID. She was found to be positive for COVID-19 and admitted with COVI
[2021-09-02] MEDS: ENOXAPARIN 40 MG/0.4 ML SYRINGE SUB-Q ×2 (11:14→21:01)
--- NOTE | 2021-09-02 11:38 | WPDPROCEDUR ---
Procedures Central Line Placement Right Femoral: Central Line Date: 09/02/21 Central Line Time: 09:00 Performed Emergently - Given emergent patient condition, temporal constraints may have precluded informed consent.: Yes Consent: atient also had developed hypotension post intubation was given 1 L saline bolus.Patient had poor IV access hence an emergent right femoral central venous catheter was placed prior to placing patient in prone position as I anticipated multiple infusions including sedation neuromuscular korey and vasopressor that was going to be needed for management Time Out Performed: Yes Patient Position: supine Patient placed on monitor/pulse ox: Yes Provider Prep: mask, sterile gown, sterile gloves, Max. sterile barrier precautions, cap and hand hygiene with conventional soap/water or alcohol based hand rub Central line prep: 2% Chlorhexidine scrub Sterile US Technique with sterile gel/sterile probe covers: Yes Central line lumen inserted: triple Length (cm): 16 Depth of Insertion (cm): 15 Post Procedure: sutured in place, good blood return, all ports aspirated, flushed, capped, transparent dressing, hemostatic product and aseptic technique maintained throughout procedure Patient tolerated procedure: well Complications: none
[2021-09-02 11:43] LABS: Anion Gap 7 mmol/L (8-16); Blood Urea Nitrogen 33 mg/dL (7-17); CRP 7.3 mg/dL (<1.0); Calcium 8.2 mg/dL (8.4-10.2); Carbon Dioxide 25 mmol/L (22-30); Chloride 109 mmol/L (98-107); Estimated CRCL calculation 67 ml/min; Estimated Glomerular Filt Rate > 60; Glucose 133 mg/dL (65-110); Potassium 3.8 mmol/L (3.4-5.0); Sodium 141 mmol/L (137-145)
[2021-09-02] MEDS: MINERAL OIL/WHITE PETROLATUM OINTMENT 1 APPLIC EACH EYE ×2 (12:34→21:01)
[2021-09-02 12:35] LABS: Alanine Aminotransferase 42 U/L (4-35)
[2021-09-02] MEDS: REMDESIVIR 100 MG/NS 250 ML 100 MG/250 ML BAG 250 MG IVPB (13:41)
[2021-09-02 14:22] LABS: Influenza Control Positive
--- NOTE | 2021-09-02 15:39 | PHAR ---
HOME MEDICATION VERIFIED BY PHARMACY: TACROLIMUS 1MG CAPSULES 1 CAP PO BID [id number]
[2021-09-02] MEDS: CENTRAL LINE FLUSH 10 ML IV PUSH ×2 (18:05→21:01)
[2021-09-02] MEDS: PANTOPRAZOLE SODIUM IV 40 MG VIAL IV PUSH (21:00)
[2021-09-03] VITALS (27 sets, daily range): BP systolic 99–167; BP diastolic 53–70; PULSE 42–77; RESP 22–24; TEMP 36.1–36.6; O2SAT 91–100
--- NOTE | 2021-09-03 | ECHO_ITS ---
Patient Info Name: Saira Lilly Age: 66 years : 1955 Gender: Female Ht: 65 in Wt: 207 lbs BSA: 2.11 m2 HR: 61 bpm BP: 99 / 53 mmHg Exam Date: 09/03/2021 10:56 AM Exam Location: [facility] Pulmonary Patient Status: Inpatient Admit Date: 08/31/2021 Staff Ordering Physician: Naz Beard MD Sustainable Communities Designer: Geraldo Puckett, LEIDA, RT Attending Provider: Naz eBard MD Referring Physician: Kisha MAGAÑA; Exam Type: CA echo doppler color flow Study Info Indications I26.99 - Other pulmonary embolism without acute cor pulmonale Complete two-dimensional, color flow and Doppler transthoracic echocardiogram is performed. Strain analysis performed. Summary 1. Complete two-dimensional, color flow and Doppler transthoracic echocardiogram is performed. 2. Left ventricular systolic function is normal, estimated at 55-60%. 3. There is moderately increased left ventricular wall thickness. 4. The left ventricular diastolic function is grade II diastolic dysfunction. 5. Left atrial chamber dimension is mildly enlarged. 6. There is mild aortic valve calcification. 7. There is mild mitral valve regurgitation. 8. There is mild tricuspid valve regurgitation. 9. Moderate pulmonary hypertension, estimated pulmonary arterial systolic pressure is 48 mmHg. 10. There is trivial pericardial effusion. Left Ventricle Left ventricular chamber dimension is normal. Left ventricular systolic function is normal, estimated at 55-60%. There is moderately increased left ventricular wall thickness. Left ventricular septal wall motion is normal. The left ventricular diastolic function is grade II diastolic dysfunction. Global longitudinal strain is normal at -19 %. Right Ventricle Right ventricular chamber dimension is normal. Right ventricular systolic function is normal. Left Atria Left atrial chamber dimension is mildly enlarged. Right Atria Right atrial chamber dimension is normal. Atrial Septum Intact interatrial septum visualized by color flow imaging. Aortic Valve The aortic valve is trileaflet. There is no aortic valve stenosis. There is no aortic valve regurgitation. There is mild aortic valve calcification. Pulmonic Valve The pulmonic valve is normal. There is no pulmonic valve stenosis. There is no pulmonic regurgitation. Mitral Valve The mitral valve has normal leaflets. There is no mitral valve stenosis. There is mild mitral valve regurgitation. Tricuspid Valve The tricuspid valve leaflets are normal. There is no significant tricuspid valve stenosis. There is mild tricuspid valve regurgitation. Moderate pulmonary hypertension, estimated pulmonary arterial systolic pressure is 48 mmHg. Pericardium/Pleural The pericardium appears normal. There is trivial pericardial effusion. Inferior Vena Cava Normal inferior vena cava with <50% collapse upon inspiration consistent with elevated right atrial pressure, 10 mmHg. Aorta The aortic root size at the sinus of Valsalva is normal. The prox ascending aorta size is normal. Left Ventricular Outflow Tract Name Value Normal LVOT 2D LVOT Diameter 2.0 cm LVOT Doppler
[2021-09-03] MEDS: cefTRIAXone 2 GM in SODIUM CHLORIDE 0.9% IV 100 ML 200 ML IVPB (05:13)
[2021-09-03 05:37] LABS: Hemoglobin 11.8 g/dL (12.0-15.0); Immature Granulocyte Absolute 0.03 K/mm3 (0.00-0.031); Immature Granulocyte Percent A 0.8 % (0-0.5); Lymphocytes Percent Auto 10.6 % (18.3-44.2); Mean Corpuscular HGB Conc 31.9 g/dl (32-36); Mean Corpuscular Hemoglobin 31.5 pg (26-34); Mean Corpuscular Volume 98.7 fl (80-100); Mean Platelet Volume 10.6 fl (7.4-10.4); Monocytes Absolute Auto 0.4 K/mm3 (0.1-0.6); Monocytes Percent Auto 11.1 % (2.6-8.5); Neutrophils Absolute Auto 2.9 K/mm3 (1.3-6.7); Neutrophils Percent Auto 77.5 % (45.5-73.1); Platelet Count Result 161 k/mm3 (150-375); Red Blood Count 3.75 M/mm3 (4.2-5.4); Red Cell Distribution Width 13.9 % (11.5-14.5); White Blood Count 3.8 K/mm3 (4.5-10.0)
[2021-09-03 05:47] LABS: Alanine Aminotransferase 37 U/L (4-35); Albumin Level 3.4 g/dL (3.5-5.1); Alkaline Phosphatase 61 U/L (38-126); Anion Gap 7 mmol/L (8-16); Aspartate Amino Transferase 80 U/L (14-36); Bilirubin,Total 0.4 mg/dL (0.2-1.3); Blood Urea Nitrogen 26 mg/dL (7-17); Calcium 9.1 mg/dL (8.4-10.2); Carbon Dioxide 29 mmol/L (22-30); Chloride 110 mmol/L (98-107); Estimated CRCL calculation 88 ml/min; Estimated Glomerular Filt Rate > 60; Glucose 169 mg/dL (65-110); Magnesium 2.1 mg/dL (1.6-2.3); Sodium 146 mmol/L (137-145)
[2021-09-03 05:58] LABS: Alveolar/Arterial O2 Gradient 383.8 mmHg; Fractional Inspired Oxygen 70 %; HCO3 ABG 26.3 mEq/l (22.0-26.0); Modified Allen's Test Unable to perform; Oxygen Content ABG 13.4 %vol (16.0-22.0); Oxygen Saturation ABG 93.2 % (95.0-100.0); Oxyhemoglobin 90.6 % THb (90.0-100.0); PCO2 ABG 44.6 mmHg (35.0-45.0); PO2 ABG 67.4 mmHg (80.0-100.0); PO2 FiO2 Ratio Arterial Blood 0.96 %; Site Drawn RIGHT RADIAL; Total Hemoglobin 10.5 g/dL (12.0-18.0); pH ABG 7.388 (7.350-7.450)
[2021-09-03 05:59] LABS: Arterial Blood Gas PEEP 14 cmH2O; Arterial Blood Gas Tidal Volume 350 ml; Arterial Blood Gas Vent Mode CMV; Arterial Blood Gas Ventilator rate 22 /MIN; Device VENTILATOR
[2021-09-03] MEDS: CISATRACURIUM BESYLATE 200 MG in DEXTROSE 5% 80 ML 8.21 ML IV CONT ×2 (06:22→20:39)
[2021-09-03] MEDS: CENTRAL LINE FLUSH 10 ML IV PUSH ×4 (06:23→20:42)
[2021-09-03 08:16] LABS: Expiratory Pressure 8 cmH2O; Inspiratory Pressure 12 cmH2O
[2021-09-03] MEDS: ENOXAPARIN 40 MG/0.4 ML SYRINGE SUB-Q ×2 (08:46→20:41)
[2021-09-03] MEDS: DEXAMETHASONE SOD PHOS INJ 4 MG/ML VIAL 6 MG IV PUSH (08:46)
[2021-09-03] MEDS: PANTOPRAZOLE SODIUM IV 40 MG VIAL IV PUSH ×2 (08:47→20:42)
[2021-09-03] MEDS: MINERAL OIL/WHITE PETROLATUM OINTMENT 1 APPLIC EACH EYE (08:47)
[2021-09-03] MEDS: REMDESIVIR 100 MG/NS 250 ML 100 MG/250 ML BAG 250 MG IVPB (10:17)
--- NOTE | 2021-09-03 10:56 | WPDINTPN ---
Progress Note: A&P Assessment and Plan (1) Acute and chronic respiratory failure with hypoxia: Code(s): J96.21 - Acute and chronic respiratory failure with hypoxia Status: Acute Assessment and Plan: Acute Respiratory failure secondary to COVID-19 Intubated 09/02 Vent settings reviewed. Currently tidal volume to 350, increase rate to 22, peep is at 14 and FiO2 is at 70% Continue daily 18 are ventilation in prone position Sedated with Versed and fentanyl. Chemically paralyzed with Nimbex infusion Continue full mechanical ventilation support to prevent hypoxemia/hypercarbia and end organ damage. ABG reviewed Chest x-ray pending Low tidal volume ventilation strategy to prevent volutrauma and permissive hypercapnia Bronchodilators (2) Pneumonia due to COVID-19 virus: Code(s): U07.1 - COVID-19; J12.82 - Pneumonia due to coronavirus disease 2019 Status: Acute Assessment and Plan: SARS-CoV-2 PCR positive 08/31 on presentation Patient is in Airborne, Droplet and Contact Isolation Continue dexamethasone started 09/02, remdesivir started 09/02 Continue antibiotics for empiric bacterial coverage with Rocephin azithromycin. Will continue for 5 days Follow inflammatory periodically 09/02 I discussed case with Pulmonary Dr. Venegas. We discussed options of Baricitinib and Actemra but since patient is already Immunocompromised, will hold at this time (3) COPD (chronic obstructive pulmonary disease): Code(s): J44.9 - Chronic obstructive pulmonary disease, unspecified Status: Acute Assessment and Plan: Currently on mechanical ventilation Bronchodilators Also on steroids for COVID-19 (4) Transplanted kidney: Code(s): Z94.0 - Kidney transplant status Status: Acute Assessment and Plan: Continue Tacrolimus Prednisone has been changed to dexamethasone Mycophenolate was held as per consultation with Transplant knot cutter at [facility] for next 2 weeks (5) Hypotension: Code(s): I95.9 - Hypotension, unspecified Status: Acute Assessment and Plan: Likely secondary to sedation and hypovolemia IV fluid bolus was given on admission to ICU Levophed infusion (6) Electrolyte abnormality: Code(s): E87.8 - Other disorders of electrolyte and fluid balance, not elsewhere classified Status: Acute Assessment and Plan: Increase free water for elevated sodium and chloride Additional Plan DVT prophylaxis -Lovenox Stress ulcer prophylaxis -PPI Nutrition -start Tube Feeds Code Status -patient at this time is full code but her niece who is a POA states that patient may have advance directive stating that she is DNR. She wass going to contact her primary care physician to obtain a copy of her advance directive and also look at home see if he can find a copy of advance directive. At this time patient is full code Total Critical Care Time - 32 minutes except separately billed procedures Due to a high probability of clinically significant, life threatening deterioration, the patient required my highest level of preparedness to intervene emergently and I personally spent this critical care time directly and personally managing the patient. This critical care time included obtaining a history; examining the patient; pulse oximetry; ordering and review of studies; arranging urgent treatment with development of a management plan; evaluation of patient's response to treatment; frequent reassessment; and discussions with other providers. It was exclusive of separately billable procedures and treating other patients and teaching time. Please see Assessment and Plan section and the rest of the note for further information on patient assessment and treatment Subjective Date/time seen: 09/03/21 10:56 Overnight events reviewed. Afebrile Continues to be on mechanical ventilation 70% FiO2 and 14 of PEEP Continues to be on sedation with Versed, fentanyl and neuromuscular blockin
--- NOTE | 2021-09-03 11:38 | PCFNICU ---
ICU Rounding Note: Pt current nutrition is Vital AF 1.2 at 30 ml/hr over 22 hours. Nutrition recommendation:goal rate at 60 ml/hr. Last recorded weight is 92.4 kg., up from 91.2 kg on admit. Bowel Motility:No BM reported. Labs Reviewed:Glu 169,BUN 26, Cr 0.6,Na 146, Alb 3.4 Meds Noted:Decadron, Lovenox, Remdesivir, Versed, Fentanyl, Levophed. Skin:WNL Additional Notes: Patient remains on mechanical vent and tube feedings of Vital AF 1.2 current at 30 ml/hr. Spoke with nursing today, planning to advance feedings. Free water flush 30 ml q 4 hours. Central line placed. Following daily in ICU rounds. Reassessing every Tuesday and Tuesday.
--- NOTE | 2021-09-03 11:44 | ECG_ITS ---
Measurements Intervals [place] Rate: 52 P: 35 MI: 182 QRS: 34 QRSD: 111 T: -1 QT: 459 QTc: 428 Interpretive Statements SINUS BRADYCARDIA INTRAVENTRICULAR CONDUCTION DELAY BORDERLINE T WAVE ABNORMALITY- ANT/INF LEADS BASELINE ARTIFACT- I, III, AVL BORDERLINE ECG Electronically Signed On 09-03-2021 12:04:44 EMERGENCY VEHICLE TECHNICIAN by Anjel Dean D.O.
[2021-09-03 12:03] LABS: Anion Gap 5 mmol/L (8-16); Blood Urea Nitrogen 26 mg/dL (7-17); Carbon Dioxide 28 mmol/L (22-30); Chloride 111 mmol/L (98-107); Estimated CRCL calculation 104 ml/min; Estimated Glomerular Filt Rate > 60; Glucose 171 mg/dL (65-110); Sodium 144 mmol/L (137-145)
[2021-09-03 12:51] LABS: INR 1.1; Prothrombin Time 14.4 Seconds (11.1-14.7)
[2021-09-03 18:28] LABS: Glucose Point of Care 176 mg/dl (65-105)
[2021-09-03] MEDS: FENTANYL 2,500MCG/NS250ML(*CRX 2,500 MCG/250 ML BAG IV CONT (23:14)
[2021-09-03] MEDS: MIDAZOLAM 100MG/NS 100ML(*CRX) 100 MG/100 ML BAG IV CONT (23:15)
[2021-09-04] VITALS (27 sets, daily range): BP systolic 95–175; BP diastolic 52–70; PULSE 41–58; RESP 22–26; TEMP 35–37.8; O2SAT 86–98
[2021-09-04 04:41] LABS: Hematocrit 40.1 % (37.0-47.0); Hemoglobin 12.4 g/dL (12.0-15.0); Immature Granulocyte Absolute 0.04 K/mm3 (0.00-0.031); Immature Granulocyte Percent A 0.9 % (0-0.5); Lymphocytes Absolute Auto 0.49 K/mm3 (0.9-3.2); Lymphocytes Percent Auto 10.9 % (18.3-44.2); Mean Corpuscular HGB Conc 30.9 g/dl (32-36); Mean Corpuscular Hemoglobin 31.2 pg (26-34); Mean Platelet Volume 10.4 fl (7.4-10.4); Monocytes Absolute Auto 0.5 K/mm3 (0.1-0.6); Monocytes Percent Auto 10.6 % (2.6-8.5); Neutrophils Absolute Auto 3.5 K/mm3 (1.3-6.7); Neutrophils Percent Auto 77.6 % (45.5-73.1); Platelet Count Result 176 k/mm3 (150-375); Red Blood Count 3.97 M/mm3 (4.2-5.4); Red Cell Distribution Width 14.1 % (11.5-14.5); White Blood Count 4.5 K/mm3 (4.5-10.0)
[2021-09-04 04:51] LABS: INR 1.1; Prothrombin Time 14.2 Seconds (11.1-14.7)
[2021-09-04 04:58] LABS: Alanine Aminotransferase 36 U/L (4-35); Albumin Level 3.5 g/dL (3.5-5.1); Alkaline Phosphatase 63 U/L (38-126); Anion Gap 7 mmol/L (8-16); Aspartate Amino Transferase 68 U/L (14-36); Bilirubin,Total 0.3 mg/dL (0.2-1.3); Blood Urea Nitrogen 29 mg/dL (7-17); Calcium 9.4 mg/dL (8.4-10.2); Carbon Dioxide 31 mmol/L (22-30); Chloride 112 mmol/L (98-107); Estimated CRCL calculation 88 ml/min; Estimated Glomerular Filt Rate > 60; Glucose 156 mg/dL (65-110); Magnesium 2.3 mg/dL (1.6-2.3); Potassium 4.1 mmol/L (3.4-5.0); Sodium 150 mmol/L (137-145)
[2021-09-04] MEDS: cefTRIAXone 2 GM in SODIUM CHLORIDE 0.9% IV 100 ML 200 ML IVPB (05:02)
[2021-09-04 05:42] LABS: Alveolar/Arterial O2 Gradient 536.3 mmHg; Base Excess ABG -1.6 mEq/l (+/-2.0); Fractional Inspired Oxygen 100 %; HCO3 ABG 25.6 mEq/l (22.0-26.0); Oxygen Content ABG 18.1 %vol (16.0-22.0); Oxyhemoglobin 96.8 % THb (90.0-100.0); PCO2 ABG 53.7 mmHg (35.0-45.0); PO2 FiO2 Ratio Arterial Blood 1.23 %; Total Hemoglobin 13.2 g/dL (12.0-18.0)
[2021-09-04 06:02] LABS: pH ABG 7.296 (7.350-7.450)
[2021-09-04 06:03] LABS: Device VENTILATOR; Modified Allen's Test Unable to perform; Site Drawn LEFT RADIAL
[2021-09-04 06:04] LABS: Arterial Blood Gas PEEP 14 cmH2O; Arterial Blood Gas Vent Mode CMV; Arterial Blood Gas Ventilator rate 22 /MIN
[2021-09-04 06:05] LABS: Arterial Blood Gas Tidal Volume 350 ml
[2021-09-04] MEDS: ENOXAPARIN 40 MG/0.4 ML SYRINGE SUB-Q ×2 (10:32→20:21)
[2021-09-04] MEDS: DEXAMETHASONE SOD PHOS INJ 4 MG/ML VIAL 6 MG IV PUSH (10:33)
[2021-09-04] MEDS: PANTOPRAZOLE SODIUM IV 40 MG VIAL IV PUSH ×2 (10:33→20:21)
[2021-09-04] MEDS: REMDESIVIR 100 MG/NS 250 ML 100 MG/250 ML BAG 250 MG IVPB (10:34)
--- NOTE | 2021-09-04 11:08 | PCNFU ---
Nutrition Follow-Up Complete: Inadequate Oral Intake as related to mechanical ventilation as evidenced by NPO. Goal: Meet estimated nutritional needs Patient is progressing towards goal. We will continue current goal. Pt current nutrition is Vital AF 1.2 at 20 ml/hr with goal rate at 60 ml/hr over 22 hours. Last recorded weight is 89.3 kg, down from 91.2 kg on admit. Bowel Motility:No BM reported, Reglan started. Labs Reviewed:Glu 156, BUN 29, Cr 0.6,Na 150 Meds Noted:Reglan, Remdesivir, Versed, Fentanyl, Lovenox Skin:WNL Additional Notes: Patient remains on mechanical vent and tube feedings of Vital AF 1.2. High residuals reported overnight. Tube feeding held and has been restarted at 20 ml/hr, Reglan added. goal rate at 60 ml/hr over 22 hours providing 1584 kcals/83 gms protein/1071 ml water. Free water flush increased 200 ml q 4 hours (Na 150). Agree with diet orders. Will monitor daily in ICU rounds and reassessing every Tuesday and Tuesday
[2021-09-04] MEDS: MINERAL OIL/WHITE PETROLATUM OINTMENT 1 APPLIC EACH EYE ×2 (11:46→20:21)
[2021-09-04] MEDS: DEXTROSE 5% IN WATER 500 ML 100 ML IV CONT (11:46)
[2021-09-04] MEDS: METOCLOPRAMIDE HCL 10 MG/10 ML SOLN UDC 5 MG PO ×2 (11:47→17:30)
--- NOTE | 2021-09-04 12:09 | WPDINTPN ---
Progress Note: A&P Assessment and Plan (1) Acute and chronic respiratory failure with hypoxia: Code(s): J96.21 - Acute and chronic respiratory failure with hypoxia Status: Acute Assessment and Plan: Acute Respiratory failure secondary to COVID-19 Intubated 09/02 ABG and Vent settings reviewed. Currently tidal volume to 350, increase rate to 26, peep is at 14 and FiO2 is at 90-100% Continue daily 18 are ventilation in prone position Sedated with Versed and fentanyl. Chemically paralyzed with Nimbex infusion Continue full mechanical ventilation support to prevent hypoxemia/hypercarbia and end organ damage. Chest x-ray reviewed Low tidal volume ventilation strategy to prevent volutrauma and permissive hypercapnia Bronchodilators (2) Pneumonia due to COVID-19 virus: Code(s): U07.1 - COVID-19; J12.82 - Pneumonia due to coronavirus disease 2018 Status: Acute Assessment and Plan: SARS-CoV-2 PCR positive 08/31 on presentation Patient is in Airborne, Droplet and Contact Isolation Continue dexamethasone started 09/02, remdesivir started 09/02 Continue antibiotics for empiric bacterial coverage with Rocephin azithromycin. Will continue for 5 days Follow inflammatory periodically 09/02 I discussed case with Pulmonary Dr. Venegas. We discussed options of Baricitinib and Actemra but since patient is already Immunocompromised, will hold at this time (3) COPD (chronic obstructive pulmonary disease): Code(s): J44.9 - Chronic obstructive pulmonary disease, unspecified Status: Acute Assessment and Plan: Currently on mechanical ventilation Bronchodilators Also on steroids for COVID-19 (4) Transplanted kidney: Code(s): Z94.0 - Kidney transplant status Status: Acute Assessment and Plan: Continue Tacrolimus Prednisone has been changed to dexamethasone Mycophenolate was held as per consultation with Transplant merchandising professor at [facility] for next 2 weeks (5) Hypotension: Code(s): I95.9 - Hypotension, unspecified Status: Acute Assessment and Plan: Likely secondary to sedation and hypovolemia IV fluid bolus was given on admission to ICU Levophed infusion as needed. Currently off (6) Electrolyte abnormality: Code(s): E87.8 - Other disorders of electrolyte and fluid balance, not elsewhere classified Status: Acute Assessment and Plan: Increase free water for elevated sodium and chloride to 200 mL q.4 hours (7) Bradycardia: Code(s): R00.1 - Bradycardia, unspecified Status: Acute Assessment and Plan: Patient has had sinus bradycardia throughout her stay in ICU. Blood pressure is adequate Atropine is at bedside Echo 09/03 Summary 1. Complete two-dimensional, color flow and Doppler transthoracic echocardiogram is performed. 2. Left ventricular systolic function is normal, estimated at 55-60%. 3. There is moderately increased left ventricular wall thickness. 4. The left ventricular diastolic function is grade II diastolic dysfunction. 5. Left atrial chamber dimension is mildly enlarged. 6. There is mild aortic valve calcification. 7. There is mild mitral valve regurgitation. 8. There is mild tricuspid valve regurgitation. 9. Moderate pulmonary hypertension, estimated pulmonary arterial systolic pressure is 48 mmHg. 10. There is trivial pericardial effusion. Additional Plan DVT prophylaxis -Lovenox Stress ulcer prophylaxis -PPI Nutrition -continue Tube Feeds add regular Code Status -patient at this time is full code but her niece who is a POA states that patient may have advance directive stating that she is DNR. She wass going to contact her primary care physician to obtain a copy of her advance directive and also look at home see if he can find a copy of advance directive. At this time patient is full code Total Critical Care Time - 30 minutes except separately billed procedures Due to a high probability o
[2021-09-04] MEDS: CENTRAL LINE FLUSH 10 ML IV PUSH ×5 (13:09→20:24)
[2021-09-04] MEDS: MIDAZOLAM 100MG/NS 100ML(*CRX) 100 MG/100 ML BAG 7 MG IV CONT (21:28)
[2021-09-04] MEDS: FENTANYL 2,500MCG/NS250ML(*CRX 2,500 MCG/250 ML BAG 150 MCG IV CONT (22:49)
[2021-09-05] VITALS (30 sets, daily range): BP systolic 101–161; BP diastolic 51–75; PULSE 41–92; RESP 26; TEMP 35.3–37.4; O2SAT 89–100
[2021-09-05] MEDS: METOCLOPRAMIDE HCL 10 MG/10 ML SOLN UDC 5 MG PO ×5 (00:31→23:10)
[2021-09-05 04:23] LABS: Alveolar/Arterial O2 Gradient 566.6 mmHg; Base Excess ABG 1.2 mEq/l (+/-2.0); Fractional Inspired Oxygen 100 %; HCO3 ABG 27.8 mEq/l (22.0-26.0); Oxygen Content ABG 16.8 %vol (16.0-22.0); Oxygen Saturation ABG 96.7 % (95.0-100.0); Oxyhemoglobin 95.1 % THb (90.0-100.0); PCO2 ABG 52.4 mmHg (35.0-45.0); PO2 FiO2 Ratio Arterial Blood 0.94 %; Total Hemoglobin 12.5 g/dL (12.0-18.0); pH ABG 7.342 (7.350-7.450)
[2021-09-05 04:25] LABS: Device VENTILATOR; Modified Allen's Test Pass; Site Drawn RIGHT RADIAL
[2021-09-05 04:26] LABS: Arterial Blood Gas PEEP 14 cmH2O; Arterial Blood Gas Tidal Volume 350 ml; Arterial Blood Gas Vent Mode CMV; Arterial Blood Gas Ventilator rate 26 /MIN
[2021-09-05 04:41] LABS: Hemoglobin 12.1 g/dL (12.0-15.0); Immature Granulocyte Absolute 0.03 K/mm3 (0.00-0.031); Immature Granulocyte Percent A 0.5 % (0-0.5); Lymphocytes Absolute Auto 0.36 K/mm3 (0.9-3.2); Lymphocytes Percent Auto 6.4 % (18.3-44.2); Mean Corpuscular HGB Conc 30.3 g/dl (32-36); Mean Corpuscular Hemoglobin 31.1 pg (26-34); Mean Corpuscular Volume 102.8 fl (80-100); Mean Platelet Volume 10.6 fl (7.4-10.4); Monocytes Absolute Auto 0.5 K/mm3 (0.1-0.6); Monocytes Percent Auto 8.6 % (2.6-8.5); Neutrophils Absolute Auto 4.7 K/mm3 (1.3-6.7); Neutrophils Percent Auto 84.5 % (45.5-73.1); Platelet Count Result 172 k/mm3 (150-375); Red Blood Count 3.89 M/mm3 (4.2-5.4); White Blood Count 5.6 K/mm3 (4.5-10.0)
[2021-09-05 04:54] LABS: INR 1.1
[2021-09-05 04:56] LABS: Alanine Aminotransferase 31 U/L (4-35); Albumin Level 3.1 g/dL (3.5-5.1); Alkaline Phosphatase 69 U/L (38-126); Anion Gap 6 mmol/L (8-16); Aspartate Amino Transferase 52 U/L (14-36); Bilirubin,Total 0.3 mg/dL (0.2-1.3); Blood Urea Nitrogen 33 mg/dL (7-17); Calcium 9.3 mg/dL (8.4-10.2); Carbon Dioxide 33 mmol/L (22-30); Chloride 111 mmol/L (98-107); Estimated CRCL calculation 75 ml/min; Estimated Glomerular Filt Rate > 60; Glucose 154 mg/dL (65-110); Magnesium 2.3 mg/dL (1.6-2.3); Potassium 4.2 mmol/L (3.4-5.0); Sodium 150 mmol/L (137-145)
[2021-09-05] MEDS: ENOXAPARIN 40 MG/0.4 ML SYRINGE SUB-Q ×2 (08:18→21:44)
[2021-09-05] MEDS: DEXAMETHASONE SOD PHOS INJ 4 MG/ML VIAL 6 MG IV PUSH (08:18)
[2021-09-05] MEDS: PANTOPRAZOLE SODIUM IV 40 MG VIAL IV PUSH ×2 (08:18→21:44)
[2021-09-05] MEDS: MINERAL OIL/WHITE PETROLATUM OINTMENT 1 APPLIC EACH EYE ×2 (08:19→21:44)
[2021-09-05] MEDS: DEXTROSE 5% IN WATER 500 ML 100 ML IV CONT ×2 (08:21→14:12)
[2021-09-05] MEDS: REMDESIVIR 100 MG/NS 250 ML 100 MG/250 ML BAG 250 MG IVPB (10:51)
--- NOTE | 2021-09-05 11:52 | WPDINTPN ---
Progress Note: A&P Assessment and Plan (1) Acute and chronic respiratory failure with hypoxia: Code(s): J96.21 - Acute and chronic respiratory failure with hypoxia Status: Acute Assessment and Plan: Acute Respiratory failure secondary to COVID-19 Intubated 09/02 ABG and Vent settings reviewed. Currently tidal volume to 350, increase rate to 26, peep is at 14 and FiO2 is at 90-100% Saturations are still in 80s in supine position. I will increase PEEP to 16 and start inhaled Flolan Continue daily 18 are ventilation in prone position Sedated with Versed and fentanyl. Chemically paralyzed with Nimbex infusion Continue full mechanical ventilation support to prevent hypoxemia/hypercarbia and end organ damage. Chest x-ray reviewed Low tidal volume ventilation strategy to prevent volutrauma and permissive hypercapnia Bronchodilators (2) Pneumonia due to COVID-19 virus: Code(s): U07.1 - COVID-19; J12.82 - Pneumonia due to coronavirus disease 2018 Status: Acute Assessment and Plan: SARS-CoV-2 PCR positive 08/31 on presentation Patient is in Airborne, Droplet and Contact Isolation Continue dexamethasone started 09/02, remdesivir started 09/02 Patient received convalescent plasma Continue antibiotics for empiric bacterial coverage with Rocephin azithromycin. Will continue for 5 days Follow inflammatory periodically 09/02 I discussed case with Pulmonary Dr. Venegas. We discussed options of Baricitinib and Actemra but since patient is already Immunocompromised, will hold at this time (3) COPD (chronic obstructive pulmonary disease): Code(s): J44.9 - Chronic obstructive pulmonary disease, unspecified Status: Acute Assessment and Plan: Currently on mechanical ventilation Bronchodilators Also on steroids for COVID-19 (4) Transplanted kidney: Code(s): Z94.0 - Kidney transplant status Status: Acute Assessment and Plan: Continue Tacrolimus. check level in a.m. Prednisone has been changed to dexamethasone Mycophenolate was held as per consultation with Transplant machine sweeper brush maker at [facility] for next 2 weeks (5) Hypotension: Code(s): I95.9 - Hypotension, unspecified Status: Acute Assessment and Plan: Likely secondary to sedation and hypovolemia IV fluid bolus was given on admission to ICU Levophed infusion as needed. Currently off (6) Electrolyte abnormality: Code(s): E87.8 - Other disorders of electrolyte and fluid balance, not elsewhere classified Status: Acute Assessment and Plan: hypernatremia persists despite Increase free water for elevated sodium 200 mL q.4 hours will give 500 cc of D5 water followed by Lasix keep overall fluid balance (7) Bradycardia: Code(s): R00.1 - Bradycardia, unspecified Status: Acute Assessment and Plan: Patient has had sinus bradycardia throughout her stay in ICU. Blood pressure is adequate Atropine is at bedside Echo 09/03 Summary 1. Complete two-dimensional, color flow and Doppler transthoracic echocardiogram is performed. 2. Left ventricular systolic function is normal, estimated at 55-60%. 3. There is moderately increased left ventricular wall thickness. 4. The left ventricular diastolic function is grade II diastolic dysfunction. 5. Left atrial chamber dimension is mildly enlarged. 6. There is mild aortic valve calcification. 7. There is mild mitral valve regurgitation. 8. There is mild tricuspid valve regurgitation. 9. Moderate pulmonary hypertension, estimated pulmonary arterial systolic pressure is 48 mmHg. 10. There is trivial pericardial effusion. Additional Plan DVT prophylaxis -Lovenox SC b.i.d. Stress ulcer prophylaxis -PPI Nutrition -continue Tube Feeds and free water flushes Code Status -patient at this time is full code but her niece who is a POA states that patient may have advance directive stating that she is DNR. She wass going to contact her prim
[2021-09-05] MEDS: MIDAZOLAM 100MG/NS 100ML(*CRX) 100 MG/100 ML BAG 7 MG IV CONT (13:22)
[2021-09-05] MEDS: INSULIN ASPART (*BKC) 100 UNITS/ML SUB-Q (13:25)
[2021-09-05 13:39] LABS: Glucose Point of Care 216 mg/dl (65-105)
[2021-09-05] MEDS: FUROSEMIDE INJ 40 MG/4 ML VIAL 20 MG IV PUSH (13:54)
[2021-09-05] MEDS: CENTRAL LINE FLUSH 10 ML IV PUSH ×3 (14:00→22:12)
[2021-09-05] MEDS: FENTANYL 2,500MCG/NS250ML(*CRX 2,500 MCG/250 ML BAG 150 MCG IV CONT (15:38)
[2021-09-05 17:35] LABS: Glucose Point of Care 192 mg/dl (65-105)
[2021-09-05] MEDS: CISATRACURIUM BESYLATE 200 MG in DEXTROSE 5% 80 ML 10.94 ML IV CONT (18:54)
[2021-09-05] MEDS: EPOPROSTENOL SODIUM 0.5 MG VIAL 1 MG INHALATION (20:31)
[2021-09-05 23:16] LABS: Glucose Point of Care 178 mg/dl (65-105)
[2021-09-06] VITALS (49 sets, daily range): BP systolic 114–148; BP diastolic 57–87; PULSE 41–76; RESP 17–263; TEMP 35.9–37.7; O2SAT 85–98
[2021-09-06] MEDS: EPOPROSTENOL SODIUM 0.5 MG VIAL 1 MG INHALATION ×4 (01:52→21:04)
[2021-09-06] MEDS: MIDAZOLAM 100MG/NS 100ML(*CRX) 100 MG/100 ML BAG 7 MG IV CONT ×2 (03:14→18:21)
[2021-09-06] MEDS: CISATRACURIUM BESYLATE 200 MG in DEXTROSE 5% 80 ML 10.94 ML IV CONT ×2 (04:54→20:55)
[2021-09-06] MEDS: CENTRAL LINE FLUSH 10 ML IV PUSH ×4 (04:58→21:07)
[2021-09-06 05:20] LABS: Alveolar/Arterial O2 Gradient 594.3 mmHg; Base Excess ABG 4.7 mEq/l (+/-2.0); Fractional Inspired Oxygen 100 %; HCO3 ABG 30.5 mEq/l (22.0-26.0); Oxygen Content ABG 18.6 %vol (16.0-22.0); Oxygen Saturation ABG 93.7 % (95.0-100.0); Oxyhemoglobin 91.4 % THb (90.0-100.0); PCO2 ABG 49.8 mmHg (35.0-45.0); PO2 ABG 68.9 mmHg (80.0-100.0); PO2 FiO2 Ratio Arterial Blood 0.69 %; Total Hemoglobin 14.5 g/dL (12.0-18.0); pH ABG 7.405 (7.350-7.450)
[2021-09-06 05:21] LABS: Arterial Blood Gas PEEP 16 cmH2O; Arterial Blood Gas Vent Mode CMV; Arterial Blood Gas Ventilator rate 26 /MIN; Device VENTILATOR; Modified Allen's Test Pass; Site Drawn RIGHT RADIAL
[2021-09-06 05:22] LABS: Arterial Blood Gas Tidal Volume 350 ml
[2021-09-06] MEDS: METOCLOPRAMIDE HCL 10 MG/10 ML SOLN UDC 5 MG PO ×4 (06:49→23:01)
[2021-09-06 07:04] LABS: Basophils Percent Auto 0.1 % (0.2-1.2); Hematocrit 38.2 % (37.0-47.0); Hemoglobin 11.7 g/dL (12.0-15.0); Immature Granulocyte Absolute 0.05 K/mm3 (0.00-0.031); Immature Granulocyte Percent A 0.5 % (0-0.5); Lymphocytes Absolute Auto 0.49 K/mm3 (0.9-3.2); Lymphocytes Percent Auto 5.2 % (18.3-44.2); Mean Corpuscular HGB Conc 30.6 g/dl (32-36); Mean Corpuscular Hemoglobin 30.6 pg (26-34); Monocytes Absolute Auto 0.6 K/mm3 (0.1-0.6); Monocytes Percent Auto 6.3 % (2.6-8.5); Neutrophils Absolute Auto 8.3 K/mm3 (1.3-6.7); Neutrophils Percent Auto 87.9 % (45.5-73.1); Platelet Count Result 160 k/mm3 (150-375); Red Blood Count 3.82 M/mm3 (4.2-5.4); Red Cell Distribution Width 13.6 % (11.5-14.5); White Blood Count 9.5 K/mm3 (4.5-10.0)
[2021-09-06 07:15] LABS: INR 1.2; Prothrombin Time 14.9 Seconds (11.1-14.7)
[2021-09-06 07:16] LABS: Alanine Aminotransferase 27 U/L (4-35); Albumin Level 2.9 g/dL (3.5-5.1); Alkaline Phosphatase 70 U/L (38-126); Anion Gap 8 mmol/L (8-16); Aspartate Amino Transferase 39 U/L (14-36); Bilirubin,Total 0.4 mg/dL (0.2-1.3); Blood Urea Nitrogen 39 mg/dL (7-17); Calcium 9.2 mg/dL (8.4-10.2); Carbon Dioxide 30 mmol/L (22-30); Chloride 109 mmol/L (98-107); Estimated CRCL calculation 87 ml/min; Estimated Glomerular Filt Rate > 60; Glucose 162 mg/dL (65-110); Potassium 3.7 mmol/L (3.4-5.0); Sodium 147 mmol/L (137-145)
[2021-09-06] MEDS: PANTOPRAZOLE SODIUM IV 40 MG VIAL IV PUSH ×2 (09:12→21:07)
[2021-09-06] MEDS: ENOXAPARIN 40 MG/0.4 ML SYRINGE SUB-Q ×2 (09:12→21:07)
[2021-09-06] MEDS: DEXAMETHASONE SOD PHOS INJ 4 MG/ML VIAL 6 MG IV PUSH (09:13)
[2021-09-06] MEDS: MINERAL OIL/WHITE PETROLATUM OINTMENT 1 APPLIC EACH EYE ×2 (09:13→21:07)
[2021-09-06] MEDS: FENTANYL 2,500MCG/NS250ML(*CRX 2,500 MCG/250 ML BAG 15 MCG IV CONT (09:26)
--- NOTE | 2021-09-06 10:07 | WPDINTPN ---
Progress Note: A&P Assessment and Plan (1) Acute and chronic respiratory failure with hypoxia: Code(s): J96.21 - Acute and chronic respiratory failure with hypoxia Status: Acute Assessment and Plan: Acute Respiratory failure secondary to COVID-19 Intubated 09/02 ABG and Vent settings reviewed. Currently tidal volume to 350, increase rate to 26, peep is at 16 and FiO2 is at 100% Yesterday Saturations dropped into 80s in supine position while FiO2 was 90% and it was increased to 100 compensated. I increased PEEP to 16 and start inhaled Flolan Currently she is on 100% and 16 of PEEP and satting 90 91% in prone position. I do not think patient tolerates supine position today and will continue prone for now Continue daily 18 are ventilation in prone position Sedated with Versed and fentanyl. Chemically paralyzed with Nimbex infusion Continue full mechanical ventilation support to prevent hypoxemia/hypercarbia and end organ damage. Unfortunately no beds are available for ECMO at this time at [facility] or [facility] Chest x-ray pending Low tidal volume ventilation strategy to prevent volutrauma and permissive hypercapnia Bronchodilators Her urine output is good and she does not have too much of possible. I will give a small dose of Lasix to see if that helps as there is no other rescue therapy left for her hypoxia (2) Pneumonia due to COVID-19 virus: Code(s): U07.1 - COVID-19; J12.82 - Pneumonia due to coronavirus disease 2019 Status: Acute Assessment and Plan: SARS-CoV-2 PCR positive 08/31 on presentation Patient is in Airborne, Droplet and Contact Isolation Continue dexamethasone started 09/02, Remdesivir started 09/02 and I will continue for 10 days Patient received convalescent plasma patient completed a 5 day course of empiric antibiotics with Rocephin azithromycin. check inflammatory markers today 09/02 I discussed case with Pulmonary Dr. Venegas. We discussed options of Baricitinib and Actemra but since patient is already Immunocompromised, will hold at this time (3) COPD (chronic obstructive pulmonary disease): Code(s): J44.9 - Chronic obstructive pulmonary disease, unspecified Status: Acute Assessment and Plan: Currently on mechanical ventilation Bronchodilators Also on steroids for COVID-19 (4) Transplanted kidney: Code(s): Z94.0 - Kidney transplant status Status: Acute Assessment and Plan: Continue Tacrolimus. check level in a.m. Prednisone has been changed to dexamethasone Mycophenolate was held as per consultation with Transplant lamp replacer at [facility] for next 2 weeks (5) Hypotension: Code(s): I95.9 - Hypotension, unspecified Status: Acute Assessment and Plan: Likely secondary to sedation and hypovolemia IV fluid bolus was given on admission to ICU Levophed infusion as needed. Currently off (6) Electrolyte abnormality: Code(s): E87.8 - Other disorders of electrolyte and fluid balance, not elsewhere classified Status: Acute Assessment and Plan: hypernatremia persists despite Increase free water for elevated sodium 200 mL q.4 hours patient was given 500 cc of D5 water followed by Lasix 09/06 Replace K (7) Bradycardia: Code(s): R00.1 - Bradycardia, unspecified Status: Acute Assessment and Plan: Patient has had sinus bradycardia throughout her stay in ICU. Blood pressure is adequate Atropine is at bedside Echo 09/03 Summary 1. Complete two-dimensional, color flow and Doppler transthoracic echocardiogram is performed. 2. Left ventricular systolic function is normal, estimated at 55-60%. 3. There is moderately increased left ventricular wall thickness. 4. The left ventricular diastolic function is grade II diastolic dysfunction. 5. Left atrial chamber dimension is mildly enlarged. 6. There is mild aortic valve calcification. 7. There is mild mitral valve regurgitation.
[2021-09-06 11:41] LABS: Glucose Point of Care 146 mg/dl (65-105)
[2021-09-06 11:41] LABS: Glucose Point of Care 201 mg/dl (65-105)
[2021-09-06] MEDS: ALBUMIN HUMAN 25% 25 GM/100 ML 100 ML IVPB (11:42)
[2021-09-06] MEDS: FUROSEMIDE INJ 40 MG/4 ML VIAL 20 MG IV PUSH (11:42)
[2021-09-06] MEDS: POTASSIUM CHLORIDE 20 MEQ PACKET (FOR LIQUID) 40 MEQ FEED TUBE (11:42)
[2021-09-06 11:56] LABS: CRP 6.3 mg/dL (<1.0); Lactate Dehydrogenase 825 U/L (313-618)
[2021-09-06] MEDS: INSULIN ASPART (*BKC) 100 UNITS/ML SUB-Q (11:56)
[2021-09-06 18:33] LABS: Glucose Point of Care 196 mg/dl (65-105)
[2021-09-06 23:25] LABS: Glucose Point of Care 180 mg/dl (65-105)
[2021-09-07] VITALS (44 sets, daily range): BP systolic 105–165; BP diastolic 51–72; PULSE 41–78; RESP 22–27; TEMP 35.7–37.4; O2SAT 90–100
[2021-09-07] MEDS: FENTANYL 2,500MCG/NS250ML(*CRX 2,500 MCG/250 ML BAG 10 MCG IV CONT (01:06)
[2021-09-07] MEDS: EPOPROSTENOL SODIUM 0.5 MG VIAL 1 MG INHALATION ×4 (02:50→20:43)
[2021-09-07] MEDS: METOCLOPRAMIDE HCL 10 MG/10 ML SOLN UDC 5 MG PO ×4 (04:30→23:12)
[2021-09-07] MEDS: CENTRAL LINE FLUSH 10 ML IV PUSH ×4 (04:31→20:55)
[2021-09-07 05:18] LABS: Basophils Percent Auto 0.3 % (0.2-1.2); Hematocrit 39.7 % (37.0-47.0); Hemoglobin 12.2 g/dL (12.0-15.0); Immature Granulocyte Absolute 0.19 K/mm3 (0.00-0.031); Immature Granulocyte Percent A 1.7 % (0-0.5); Lymphocytes Absolute Auto 0.64 K/mm3 (0.9-3.2); Lymphocytes Percent Auto 5.7 % (18.3-44.2); Mean Corpuscular HGB Conc 30.7 g/dl (32-36); Mean Corpuscular Hemoglobin 30.7 pg (26-34); Mean Corpuscular Volume 99.7 fl (80-100); Mean Platelet Volume 11.4 fl (7.4-10.4); Monocytes Absolute Auto 0.6 K/mm3 (0.1-0.6); Monocytes Percent Auto 4.9 % (2.6-8.5); Neutrophils Absolute Auto 9.9 K/mm3 (1.3-6.7); Neutrophils Percent Auto 87.4 % (45.5-73.1); Platelet Count Result 137 k/mm3 (150-375); Red Blood Count 3.98 M/mm3 (4.2-5.4); Red Cell Distribution Width 13.4 % (11.5-14.5); White Blood Count 11.3 K/mm3 (4.5-10.0)
[2021-09-07 05:25] LABS: Base Excess ABG 7.4 mEq/l (+/-2.0); HCO3 ABG 30.4 mEq/l (22.0-26.0); Oxygen Saturation ABG 98.7 % (95.0-100.0); PCO2 ABG 36.9 mmHg (35.0-45.0); pH ABG 7.533 (7.350-7.450)
[2021-09-07 05:26] LABS: Carboxyhemoglobin 0.2 % THb (0-2.0); Device VENTILATOR; Fractional Inspired Oxygen 100 %; Methemoglobin ABG 0.3 %THb (0-1.5); Modified Allen's Test Unable to perform; Oxyhemoglobin 96.9 % THb (90.0-100.0); PO2 FiO2 Ratio Arterial Blood 1.18 %; Reduced Hemoglobin 2.6 %THb (0-5.0); Site Drawn RIGHT RADIAL
[2021-09-07 05:27] LABS: Alanine Aminotransferase 26 U/L (4-35); Albumin Level 3.4 g/dL (3.5-5.1); Alkaline Phosphatase 76 U/L (38-126); Anion Gap 8 mmol/L (8-16); Aspartate Amino Transferase 35 U/L (14-36); Bilirubin,Total 0.8 mg/dL (0.2-1.3); Blood Urea Nitrogen 42 mg/dL (7-17); Calcium 9.8 mg/dL (8.4-10.2); Carbon Dioxide 32 mmol/L (22-30); Chloride 105 mmol/L (98-107); Estimated CRCL calculation 87 ml/min; Estimated Glomerular Filt Rate > 60; Glucose 184 mg/dL (65-110); Magnesium 2.1 mg/dL (1.6-2.3); Potassium 3.8 mmol/L (3.4-5.0); Sodium 145 mmol/L (137-145)
[2021-09-07 05:28] LABS: Alveolar/Arterial O2 Gradient 558.1 mmHg; Oxygen Content ABG 17.9 %vol (16.0-22.0)
[2021-09-07 05:29] LABS: Arterial Blood Gas PEEP 16 cmH2O; Arterial Blood Gas Tidal Volume 350 ml; Arterial Blood Gas Vent Mode CMV; Arterial Blood Gas Ventilator rate 26 /MIN
[2021-09-07] MEDS: CISATRACURIUM BESYLATE 200 MG in DEXTROSE 5% 80 ML 10.94 ML IV CONT (05:37)
[2021-09-07 07:59] LABS: Hypochromasia 1+ (NORMAL); Large Platelets Present
[2021-09-07] MEDS: FUROSEMIDE INJ 40 MG/4 ML VIAL 20 MG IV PUSH (10:26)
[2021-09-07] MEDS: DEXAMETHASONE SOD PHOS INJ 4 MG/ML VIAL 6 MG IV PUSH (10:26)
[2021-09-07] MEDS: PANTOPRAZOLE SODIUM IV 40 MG VIAL IV PUSH ×2 (10:26→20:54)
[2021-09-07] MEDS: MINERAL OIL/WHITE PETROLATUM OINTMENT 1 APPLIC EACH EYE ×2 (10:26→20:55)
[2021-09-07] MEDS: ENOXAPARIN 40 MG/0.4 ML SYRINGE SUB-Q ×2 (10:26→20:54)
[2021-09-07] MEDS: MIDAZOLAM 100MG/NS 100ML(*CRX) 100 MG/100 ML BAG IV CONT (10:33)
--- NOTE | 2021-09-07 11:11 | PCFNICU ---
ICU Rounding Note: Pt current nutrition is Vital AF 1.2 at 60 ml/hr over 22 hours. Last recorded weight is 90.9 kg, down from 91.2 kg on admit. Bowel Motility:No BM reported. Labs Reviewed:GFR 184, Alb 3.4,BUN 42, Glu 184,Cr 0.6 Meds Noted:Decadron, Reglan, Lovenox, Versed, Fentanyl, Levophed, Protonix. Skin:WNL Additional Notes: Patient remains on mechanical vent and tube feeding of Vital AF 1.2 at 60 ml/hr and tolerating per nursing. 200 ml free water flush, sodium WNL. Agree with diet orders. Following daily in ICU rounds. Will monitor every Tuesday and Tuesday.
--- NOTE | 2021-09-07 11:46 | WPDINTPN ---
Progress Note: A&P Assessment and Plan (1) Acute and chronic respiratory failure with hypoxia: Code(s): J96.21 - Acute and chronic respiratory failure with hypoxia Status: Acute Assessment and Plan: Acute Respiratory failure secondary to COVID-19 Intubated 09/02 ABG and Vent settings reviewed. Currently tidal volume to 350, decrease rate to 22, peep is at 16 and FiO2 is at 90% Continue daily 18 are ventilation in prone position Sedated with Versed and fentanyl. Chemically paralyzed with Nimbex infusion Continue full mechanical ventilation support to prevent hypoxemia/hypercarbia and end organ damage. Unfortunately no beds are available for ECMO at this time at [facility] or [facility] which I confirmed again today Chest x-ray reviewed Low tidal volume ventilation strategy to prevent volutrauma and permissive hypercapnia Bronchodilators Continue Lasix today (2) Pneumonia due to COVID-19 virus: Code(s): U07.1 - COVID-19; J12.82 - Pneumonia due to coronavirus disease 2018 Status: Acute Assessment and Plan: SARS-CoV-2 PCR positive 08/31 on presentation Patient is in Airborne, Droplet and Contact Isolation Continue dexamethasone started 09/02, Remdesivir started 09/02 and I will continue for 10 days Patient received convalescent plasma patient completed a 5 day course of empiric antibiotics with Rocephin azithromycin. Inflammatory markers reviewed 09/02 I discussed case with Pulmonary Dr. Venegas. We discussed options of Baricitinib and Actemra but since patient is already Immunocompromised, will hold at this time (3) COPD (chronic obstructive pulmonary disease): Code(s): J44.9 - Chronic obstructive pulmonary disease, unspecified Status: Acute Assessment and Plan: Currently on mechanical ventilation Bronchodilators Also on steroids for COVID-19 (4) Transplanted kidney: Code(s): Z94.0 - Kidney transplant status Status: Acute Assessment and Plan: Continue Tacrolimus. level sent and is pending Prednisone has been changed to dexamethasone Mycophenolate was held as per consultation with Transplant switchgear repairer at [facility] for next 2 weeks (5) Hypotension: Code(s): I95.9 - Hypotension, unspecified Status: Acute Assessment and Plan: Likely secondary to sedation and hypovolemia IV fluid bolus was given on admission to ICU Levophed infusion as needed. Currently off (6) Electrolyte abnormality: Code(s): E87.8 - Other disorders of electrolyte and fluid balance, not elsewhere classified Status: Acute Assessment and Plan: hypernatremia improved with Increase free water for elevated sodium 200 mL q.4 hours (7) Bradycardia: Code(s): R00.1 - Bradycardia, unspecified Status: Acute Assessment and Plan: Patient has had sinus bradycardia throughout her stay in ICU. Blood pressure is adequate Atropine is at bedside Echo 09/03 Summary 1. Complete two-dimensional, color flow and Doppler transthoracic echocardiogram is performed. 2. Left ventricular systolic function is normal, estimated at 55-60%. 3. There is moderately increased left ventricular wall thickness. 4. The left ventricular diastolic function is grade II diastolic dysfunction. 5. Left atrial chamber dimension is mildly enlarged. 6. There is mild aortic valve calcification. 7. There is mild mitral valve regurgitation. 8. There is mild tricuspid valve regurgitation. 9. Moderate pulmonary hypertension, estimated pulmonary arterial systolic pressure is 48 mmHg. 10. There is trivial pericardial effusion. Additional Plan DVT prophylaxis -Lovenox SC b.i.d. Stress ulcer prophylaxis -PPI Nutrition -continue Tube Feeds and free water flushes Code Status - 09/06 I spoke to patient's sister Nelli by phone. I updated her with patient's current status including severe respiratory failure which has not shown any improvement
[2021-09-07 12:27] LABS: Glucose Point of Care 269 mg/dl (65-105)
[2021-09-07] MEDS: CISATRACURIUM BESYLATE 200 MG in DEXTROSE 5% 80 ML 13.68 ML IV CONT ×2 (13:04→20:46)
[2021-09-07] MEDS: INSULIN ASPART (*BKC) 100 UNITS/ML SUB-Q ×2 (13:07→16:33)
[2021-09-07] MEDS: REMDESIVIR 100 MG/NS 250 ML 100 MG/250 ML BAG 250 MG IVPB (15:21)
[2021-09-07 16:52] LABS: Glucose Point of Care 246 mg/dl (65-105)
[2021-09-08] VITALS (44 sets, daily range): BP systolic 120–145; BP diastolic 53–68; PULSE 44–59; RESP 22; TEMP 36.9–37.3; O2SAT 89–95
[2021-09-08] MEDS: EPOPROSTENOL SODIUM 0.5 MG VIAL 1 MG INHALATION ×4 (02:35→19:41)
[2021-09-08] MEDS: FENTANYL 2,500MCG/NS250ML(*CRX 2,500 MCG/250 ML BAG 10 MCG IV CONT (02:36)
[2021-09-08] MEDS: CISATRACURIUM BESYLATE 200 MG in DEXTROSE 5% 80 ML 13.68 ML IV CONT ×3 (05:18→19:04)
[2021-09-08] MEDS: CENTRAL LINE FLUSH 10 ML IV PUSH ×4 (05:23→23:21)
[2021-09-08] MEDS: METOCLOPRAMIDE HCL 10 MG/10 ML SOLN UDC 5 MG PO ×4 (05:23→23:42)
[2021-09-08 05:39] LABS: Alveolar/Arterial O2 Gradient 587.8 mmHg; Carboxyhemoglobin 0.2 % THb (0-2.0); Fractional Inspired Oxygen 100 %; HCO3 ABG 32.9 mEq/l (22.0-26.0); Methemoglobin ABG 0.3 %THb (0-1.5); Oxygen Content ABG 15.7 %vol (16.0-22.0); Oxygen Saturation ABG 94.5 % (95.0-100.0); PCO2 ABG 52.8 mmHg (35.0-45.0); PO2 ABG 72.4 mmHg (80.0-100.0); PO2 FiO2 Ratio Arterial Blood 0.72 %; Reduced Hemoglobin 6.5 %THb (0-5.0); pH ABG 7.412 (7.350-7.450)
[2021-09-08 05:41] LABS: Glucose Point of Care 199 mg/dl (65-105)
[2021-09-08 05:41] LABS: Glucose Point of Care 170 mg/dl (65-105)
[2021-09-08 05:49] LABS: Basophils Percent Auto 0.4 % (0.2-1.2); Hematocrit 39.1 % (37.0-47.0); Hemoglobin 11.7 g/dL (12.0-15.0); Immature Granulocyte Percent A 4.5 % (0-0.5); Immature Platelet Fraction Pct 8.7 % (0.9-11.2); Lymphocytes Absolute Auto 0.66 K/mm3 (0.9-3.2); Lymphocytes Percent Auto 5.9 % (18.3-44.2); Mean Corpuscular HGB Conc 29.9 g/dl (32-36); Mean Corpuscular Hemoglobin 31.2 pg (26-34); Mean Corpuscular Volume 104.3 fl (80-100); Mean Platelet Volume 11.9 fl (7.4-10.4); Monocytes Absolute Auto 0.7 K/mm3 (0.1-0.6); Monocytes Percent Auto 5.8 % (2.6-8.5); Neutrophils Absolute Auto 9.3 K/mm3 (1.3-6.7); Neutrophils Percent Auto 83.4 % (45.5-73.1); Nucleated Red Blood Cells Perc 0.2 % (0.0-0.2); Platelet Count Result 141 k/mm3 (150-375); Red Blood Count 3.75 M/mm3 (4.2-5.4); Red Cell Distribution Width 13.7 % (11.5-14.5); White Blood Count 11.2 K/mm3 (4.5-10.0)
[2021-09-08 05:50] LABS: Device VENTILATOR; Modified Allen's Test Unable to perform; Site Drawn LEFT RADIAL
[2021-09-08 05:51] LABS: Arterial Blood Gas PEEP 16 cmH2O; Arterial Blood Gas Tidal Volume 350 ml; Arterial Blood Gas Vent Mode CMV; Arterial Blood Gas Ventilator rate 22 /MIN
[2021-09-08 06:09] LABS: Alanine Aminotransferase 24 U/L (4-35); Albumin Level 3.2 g/dL (3.5-5.1); Alkaline Phosphatase 79 U/L (38-126); Anion Gap 5 mmol/L (8-16); Aspartate Amino Transferase 33 U/L (14-36); Bilirubin,Total 0.6 mg/dL (0.2-1.3); Blood Urea Nitrogen 51 mg/dL (7-17); Calcium 9.5 mg/dL (8.4-10.2); Carbon Dioxide 37 mmol/L (22-30); Chloride 106 mmol/L (98-107); Estimated CRCL calculation 88 ml/min; Estimated Glomerular Filt Rate > 60; Glucose 193 mg/dL (65-110); Magnesium 2.4 mg/dL (1.6-2.3); Potassium 4.1 mmol/L (3.4-5.0); Sodium 148 mmol/L (137-145)
[2021-09-08 06:43] LABS: INR 1.2; Prothrombin Time 15.3 Seconds (11.1-14.7)
[2021-09-08] MEDS: PANTOPRAZOLE SODIUM IV 40 MG VIAL IV PUSH ×2 (08:51→20:04)
[2021-09-08] MEDS: FUROSEMIDE INJ 40 MG/4 ML VIAL 20 MG IV PUSH ×2 (08:51→16:32)
[2021-09-08] MEDS: DEXAMETHASONE SOD PHOS INJ 4 MG/ML VIAL 6 MG IV PUSH (08:51)
[2021-09-08] MEDS: INSULIN GLARGINE (*BKC) 100 UNITS/ML 10 UNITS SUB-Q (08:52)
[2021-09-08] MEDS: ENOXAPARIN 40 MG/0.4 ML SYRINGE SUB-Q ×2 (08:53→20:03)
[2021-09-08] MEDS: MINERAL OIL/WHITE PETROLATUM OINTMENT 1 APPLIC EACH EYE ×2 (08:53→20:03)
[2021-09-08 09:14] LABS: Glucose Point of Care 177 mg/dl (65-105)
[2021-09-08] MEDS: REMDESIVIR 100 MG/NS 250 ML 100 MG/250 ML BAG 250 MG IVPB (10:01)
[2021-09-08 10:29] LABS: CRP 5.3 mg/dL (<1.0); Lactate Dehydrogenase 746 U/L (313-618)
--- NOTE | 2021-09-08 11:02 | WPDINTPN ---
Progress Note: A&P Assessment and Plan (1) Acute and chronic respiratory failure with hypoxia: Code(s): J96.21 - Acute and chronic respiratory failure with hypoxia Status: Acute Assessment and Plan: Acute Respiratory failure secondary to COVID-19 Intubated 09/02 ABG and Vent settings reviewed. Currently tidal volume to 350, decrease rate to 22, peep is at 16 and FiO2 is at 100% Patient is on high PEEP and FiO2 and will not tolerate supine position hence will continue prone position at this time. Increase PEEP to 18 Advance ET tube by 2 cm Chest x-ray suggest pneumomediastinum Sedated with Versed and fentanyl. Chemically paralyzed with Nimbex infusion Continue full mechanical ventilation support to prevent hypoxemia/hypercarbia and end organ damage. Unfortunately no beds are available for ECMO at this time at [facility] or [facility] Low tidal volume ventilation strategy to prevent volutrauma and permissive hypercapnia Bronchodilators Continue Lasix twice today (2) Pneumonia due to COVID-19 virus: Code(s): U07.1 - COVID-19; J12.82 - Pneumonia due to coronavirus disease 2018 Status: Acute Assessment and Plan: SARS-CoV-2 PCR positive 08/31 on presentation Patient is in Airborne, Droplet and Contact Isolation Continue dexamethasone started 09/02, Remdesivir started 09/02 and I will continue for 10 days Patient received convalescent plasma patient completed a 5 day course of empiric antibiotics with Rocephin azithromycin. Inflammatory markers reviewed 09/02 I discussed case with Pulmonary Dr. Venegas. We discussed options of Baricitinib and Actemra but since patient is already Immunocompromised, will hold at this time (3) COPD (chronic obstructive pulmonary disease): Code(s): J44.9 - Chronic obstructive pulmonary disease, unspecified Status: Acute Assessment and Plan: Currently on mechanical ventilation Bronchodilators Also on steroids for COVID-19 (4) Transplanted kidney: Code(s): Z94.0 - Kidney transplant status Status: Acute Assessment and Plan: Continue Tacrolimus. level sent and is pending Prednisone has been changed to dexamethasone Mycophenolate was held as per consultation with Transplant car rental manager at [facility] for next 2 weeks (5) Hypotension: Code(s): I95.9 - Hypotension, unspecified Status: Acute Assessment and Plan: Likely secondary to sedation and hypovolemia IV fluid bolus was given on admission to ICU Levophed infusion as needed. Currently off (6) Electrolyte abnormality: Code(s): E87.8 - Other disorders of electrolyte and fluid balance, not elsewhere classified Status: Acute Assessment and Plan: hypernatremia improved with Increase free water for elevated sodium 200 mL q.4 hours (7) Bradycardia: Code(s): R00.1 - Bradycardia, unspecified Status: Acute Assessment and Plan: Patient has had sinus bradycardia throughout her stay in ICU. Blood pressure is adequate Atropine is at bedside Echo 09/03 Summary 1. Complete two-dimensional, color flow and Doppler transthoracic echocardiogram is performed. 2. Left ventricular systolic function is normal, estimated at 55-60%. 3. There is moderately increased left ventricular wall thickness. 4. The left ventricular diastolic function is grade II diastolic dysfunction. 5. Left atrial chamber dimension is mildly enlarged. 6. There is mild aortic valve calcification. 7. There is mild mitral valve regurgitation. 8. There is mild tricuspid valve regurgitation. 9. Moderate pulmonary hypertension, estimated pulmonary arterial systolic pressure is 48 mmHg. 10. There is trivial pericardial effusion. Additional Plan DVT prophylaxis -Lovenox SC b.i.d. Stress ulcer prophylaxis -PPI Nutrition -continue Tube Feeds and free water flushes Code Status - 09/06 I spoke to patient's sister Nelli by phone. I updated
[2021-09-08] MEDS: MIDAZOLAM 100MG/NS 100ML(*CRX) 100 MG/100 ML BAG IV CONT (11:34)
--- NOTE | 2021-09-08 11:42 | PCNFU ---
Nutrition Follow-Up Complete: Inadequate Oral Intake as related to mechanical ventilation as evidenced by NPO. Goal: Meet estimated nutritional needs Patient is remains at goal. No new goal. Pt current nutrition is Vital AF 1.2 at 60 ml/hr over 22 hours. Last recorded weight is 91.5 kg, up from 91.2 kg on admit. Bowel Motility:No BM reported. Labs Reviewed:Glu 193, Cr 0.6,BUN 51, Alb 3.2,Na 148 Meds Noted:Lovenox, Nimbex, Versed, Fentanyl, Protonix, Remdesivir, Decadron, Reglan. Skin: WNL Additional Notes: Patient remains on mechanical vent and tube feedings of Vital AF 1.2 at 60 ml/hr-tolerating. Tube feedings providing 1584 kcals/83 gms protein/1071 ml water. Free water flush 200 ml q 4 hours. Patient is proned. No BM, Reglan started. Nursing spoke with family, possible comfort care soon. Monitoring: Will monitor in ICU rounds and assessing every Tuesday and Tuesday
[2021-09-08 11:56] LABS: Glucose Point of Care 191 mg/dl (65-105)
[2021-09-08] MEDS: INSULIN ASPART (*BKC) 100 UNITS/ML SUB-Q (16:33)
[2021-09-08 16:50] LABS: Glucose Point of Care 259 mg/dl (65-105)
[2021-09-09] VITALS (21 sets, daily range): BP systolic 117–131; BP diastolic 58–68; PULSE 52–74; RESP 22; TEMP 37.2–37.4; O2SAT 89–94
[2021-09-09 00:08] LABS: Glucose Point of Care 208 mg/dl (65-105)
[2021-09-09] MEDS: INSULIN ASPART (*BKC) 100 UNITS/ML SUB-Q (00:26)
[2021-09-09] MEDS: EPOPROSTENOL SODIUM 0.5 MG VIAL 1 MG INHALATION ×2 (01:37→07:50)
[2021-09-09] MEDS: CISATRACURIUM BESYLATE 200 MG in DEXTROSE 5% 80 ML 13.68 ML IV CONT ×2 (03:20→12:40)
[2021-09-09] MEDS: FENTANYL 2,500MCG/NS250ML(*CRX 2,500 MCG/250 ML BAG 10 MCG IV CONT (03:23)
[2021-09-09 04:31] LABS: Alveolar/Arterial O2 Gradient 581.3 mmHg; Base Excess ABG 10.3 mEq/l (+/-2.0); Carboxyhemoglobin 0.3 % THb (0-2.0); Fractional Inspired Oxygen 100 %; HCO3 ABG 37.7 mEq/l (22.0-26.0); Methemoglobin ABG 0.3 %THb (0-1.5); Oxygen Content ABG 16.1 %vol (16.0-22.0); Oxygen Saturation ABG 92.5 % (95.0-100.0); Oxyhemoglobin 91.2 % THb (90.0-100.0); PO2 ABG 67.1 mmHg (80.0-100.0); PO2 FiO2 Ratio Arterial Blood 0.67 %; Reduced Hemoglobin 8.2 %THb (0-5.0); Total Hemoglobin 12.5 g/dL (12.0-18.0); pH ABG 7.384 (7.350-7.450)
[2021-09-09 04:34] LABS: Modified Allen's Test Pass; PCO2 ABG 64.6 mmHg (35.0-45.0); Site Drawn RIGHT RADIAL
[2021-09-09 04:35] LABS: Arterial Blood Gas PEEP 18 cmH2O; Arterial Blood Gas Vent Mode CMV; Arterial Blood Gas Ventilator rate 22 /MIN; Device VENTILATOR
[2021-09-09 04:36] LABS: Arterial Blood Gas Tidal Volume 350 ml
[2021-09-09 04:40] LABS: Basophils Absolute Auto 0.1 K/mm3 (0.0-0.1); Basophils Percent Auto 0.4 % (0.2-1.2); Eosinophils Percent Auto 0.1 % (0-4.4); Hematocrit 37.8 % (37.0-47.0); Hemoglobin 11.1 g/dL (12.0-15.0); Immature Granulocyte Absolute 0.54 K/mm3 (0.00-0.031); Immature Granulocyte Percent A 4.4 % (0-0.5); Immature Platelet Fraction Pct 8.4 % (0.9-11.2); Lymphocytes Absolute Auto 0.66 K/mm3 (0.9-3.2); Lymphocytes Percent Auto 5.4 % (18.3-44.2); Mean Corpuscular HGB Conc 29.4 g/dl (32-36); Mean Corpuscular Hemoglobin 30.9 pg (26-34); Mean Corpuscular Volume 105.3 fl (80-100); Mean Platelet Volume 11.5 fl (7.4-10.4); Monocytes Absolute Auto 0.8 K/mm3 (0.1-0.6); Monocytes Percent Auto 6.2 % (2.6-8.5); Neutrophils Absolute Auto 10.2 K/mm3 (1.3-6.7); Neutrophils Percent Auto 83.5 % (45.5-73.1); Platelet Count Result 152 k/mm3 (150-375); Red Blood Count 3.59 M/mm3 (4.2-5.4); Red Cell Distribution Width 13.6 % (11.5-14.5); White Blood Count 12.2 K/mm3 (4.5-10.0)
[2021-09-09 04:49] LABS: Glucose Point of Care 180 mg/dl (65-105)
[2021-09-09 04:53] LABS: INR 1.2; Prothrombin Time 15.3 Seconds (11.1-14.7)
[2021-09-09 04:56] LABS: Alanine Aminotransferase 22 U/L (4-35); Albumin Level 2.9 g/dL (3.5-5.1); Alkaline Phosphatase 79 U/L (38-126); Aspartate Amino Transferase 29 U/L (14-36); Bilirubin,Total 0.8 mg/dL (0.2-1.3); Blood Urea Nitrogen 58 mg/dL (7-17); Calcium 9.8 mg/dL (8.4-10.2); Carbon Dioxide > 40 mmol/L (22-30); Chloride 105 mmol/L (98-107); Estimated CRCL calculation 67 ml/min; Estimated Glomerular Filt Rate > 60; Glucose 199 mg/dL (65-110); Magnesium 2.3 mg/dL (1.6-2.3); Sodium 153 mmol/L (137-145)
[2021-09-09 06:37] LABS: Large Platelets Present; Macrocytosis 1+ (NORMAL); Platelet Estimate Adequate (Adequate)
[2021-09-09] MEDS: CENTRAL LINE FLUSH 10 ML IV PUSH (07:13)
[2021-09-09] MEDS: METOCLOPRAMIDE HCL 10 MG/10 ML SOLN UDC 5 MG PO (07:24)
[2021-09-09] MEDS: PANTOPRAZOLE SODIUM IV 40 MG VIAL IV PUSH (09:54)
[2021-09-09 12:07] LABS: Glucose Point of Care 165 mg/dl (65-105)
[2021-09-09] MEDS: MIDAZOLAM 100MG/NS 100ML(*CRX) 100 MG/100 ML BAG IV CONT (12:40)
--- NOTE | 2021-09-09 13:34 | PCFNICU ---
ICU Rounding Note: Pt current nutrition is Vital AF 1.2 at 60 ml/hr over 22 hours. Last recorded weight is 92.5 kg-stable Bowel Motility:No BM reported. Labs Reviewed:BUN 58, Alb 2.9,Na 153, Glu 199 Meds Noted:Nimbex,Flolan,Decadron,Versed,Lovenox, Levophed, Protonix, Reglan. Skin: WNL Additional Notes: Patient remains on mechanical vent and tube feedings of Vital AF 1.2 at 60 ml/hr. Plans to withdraw care today. Following daily in ICU rounds. Will monitor every Tuesday and Tuesday.
--- NOTE | 2021-09-09 13:35 | WPDINTPN ---
Progress Note: A&P Assessment and Plan (1) Acute and chronic respiratory failure with hypoxia: Code(s): J96.21 - Acute and chronic respiratory failure with hypoxia Status: Acute Assessment and Plan: Acute Respiratory failure secondary to COVID-19 Intubated 09/02 ABG and Vent settings reviewed. Continue PEEP of 18 and 100% FiO2 -chest x-ray reviewed -continue prone positioning. Sedated with Versed and fentanyl. Chemically paralyzed with Nimbex infusion Continue full mechanical ventilation support to prevent hypoxemia/hypercarbia and end organ damage. Low tidal volume ventilation strategy to prevent volutrauma and permissive hypercapnia Bronchodilators -family has decided to withdraw support today (2) Pneumonia due to COVID-19 virus: Code(s): U07.1 - COVID-19; J12.82 - Pneumonia due to coronavirus disease 2018 Status: Acute Assessment and Plan: SARS-CoV-2 PCR positive 08/31 on presentation Patient is in Airborne, Droplet and Contact Isolation Continue dexamethasone started 09/02, Remdesivir started 09/02 and I will continue for 10 days Patient received convalescent plasma patient completed a 5 day course of empiric antibiotics with Rocephin azithromycin. Inflammatory markers reviewed 09/02 I discussed case with Pulmonary Dr. Venegas. We discussed options of Baricitinib and Actemra but since patient is already Immunocompromised, will hold at this time (3) COPD (chronic obstructive pulmonary disease): Code(s): J44.9 - Chronic obstructive pulmonary disease, unspecified Status: Acute Assessment and Plan: Currently on mechanical ventilation Bronchodilators Also on steroids for COVID-19 (4) Transplanted kidney: Code(s): Z94.0 - Kidney transplant status Status: Acute Assessment and Plan: Continue Tacrolimus. level sent and is pending Prednisone has been changed to dexamethasone Mycophenolate was held as per consultation with Transplant floor tech at [facility] for next 2 weeks (5) Hypotension: Code(s): I95.9 - Hypotension, unspecified Status: Acute Assessment and Plan: Likely secondary to sedation and hypovolemia IV fluid bolus was given on admission to ICU Levophed infusion as needed. Currently off (6) Electrolyte abnormality: Code(s): E87.8 - Other disorders of electrolyte and fluid balance, not elsewhere classified Status: Acute Assessment and Plan: hypernatremia: Increase free water flushes to 200 mL q.4 hours (7) Bradycardia: Code(s): R00.1 - Bradycardia, unspecified Status: Acute Assessment and Plan: Patient has had sinus bradycardia throughout her stay in ICU. Blood pressure is adequate, heart rate is stable Atropine is at bedside Echo 09/03 Summary 1. Complete two-dimensional, color flow and Doppler transthoracic echocardiogram is performed. 2. Left ventricular systolic function is normal, estimated at 55-60%. 3. There is moderately increased left ventricular wall thickness. 4. The left ventricular diastolic function is grade II diastolic dysfunction. 5. Left atrial chamber dimension is mildly enlarged. 6. There is mild aortic valve calcification. 7. There is mild mitral valve regurgitation. 8. There is mild tricuspid valve regurgitation. 9. Moderate pulmonary hypertension, estimated pulmonary arterial systolic pressure is 48 mmHg. 10. There is trivial pericardial effusion. Additional Plan DVT prophylaxis -Lovenox SC b.i.d. Stress ulcer prophylaxis -PPI Nutrition -continue Tube Feeds and free water flushes Code Status - 09/06 I spoke to patient's sister Nelli by phone. I updated her with patient's current status including severe respiratory failure which has not shown any improvement since intubation, continued requirement of high FiO2 high PEEP and inhaled Flolan, current treatment plan and answered all her questions. I also discussed code status and option
--- NOTE | 2021-09-09 16:15 | PCRCNOTE ---
Terminally extubated patient at [address] Beasley.
--- NOTE | 2021-09-09 17:08 | PC.NURSE ---
Family at bedside at 16:00 to discontinue life support. Brothers Enrique and Hemal present with sister Swati on the phone. Family spoke with Dr. Beasley prior to extubation. Sedation and paralytic discontinued prior to ETT being removed at 16:20. RT Tanmay at bedside with this RN. Family remained in the room in appropriate PPE (N95, isolation gown, gloves). Patient pronounced at 16:27.
[2021-09-09 17:13] LABS: Tacrolimus Prograf 1.1 mcg/L
--- NOTE | 2021-09-09 19:19 | PM.DDS ---
Discharge Summary Date and Time Date of : 09/09/21 Time of : 16:27 Provider Pronounced By: Leny Lance RN and Manasa Raines RN Probable Cause of Probable Cause of : Acute respiratory failure. Summary Hospital Course: Please refer to admission H&P. Briefly, patient admitted for acute respiratory failure secondary to COVID-19 and started on appropriate remdesivir, dexamethasone and convalescent plasma. She was intubated on 09/02/2021. Patient benefited from from mechanical ventilation support. Despite aggressive management patient was not improving. Patient decided to withdraw respiratory support on 09/09/2021. Patient shortly thereafter. Additional Data Confirmation of as documented by pronouncing clinician: Pupillary Reflex, Palpable Pulses, Response to Stimuli, Heart Tones and Breath Sounds Name of Provider Notified: Dr. Maikel Ellison Provider Notified: 16:45 Was code activated?: No Provider Requests Autopsy: No Family Requests Autopsy: No [facility]pholsterer Notified: Yes Date [facility] Notified of : 09/09/21 Time [facility] Notified of : 17:06 Advance directives: Yes Hospice patient?: No
== END 2021-09-09 16:27 | disposition expired | DRG 207 ==
LOC: ANHED 23:50 → ANHIMU 09-01 07:21 → ANHICU 09-04 15:34 → ANHIMU 09-10 11:29
PROVIDERS: Internal Medicine; Internal Medicine Pulmonary Disease; Admitting Provider Internal Medicine; Emergency Provider Emergency Medicine; Visit Provider Internal Medicine
DX: U07.1 COVID-19 (principal); J12.82 Pneumonia due to coronavirus disease 2019; J96.21 Acute and chronic respiratory failure with hypoxia; I26.99 Other pulmonary embolism without acute cor pulmonale; Z94.0 Kidney transplant status; J44.0 Chronic obstructive pulmonary disease with (acute) lower respiratory infection; E87.0 Hyperosmolality and hypernatremia; R00.1 Bradycardia, unspecified; I95.2 Hypotension due to drugs; T42.4X5A Adverse effect of benzodiazepines, initial encounter; T40.415A Adverse effect of fentanyl or fentanyl analogs, initial encounter; I95.89 Other hypotension; Z99.81 Dependence on supplemental oxygen; Z66 Do not resuscitate
CPT/HCPCS: 31500; 36415; 36430; 36600; 71045; 71275; 78580; 80048; 80053; 80197; 82375; 82565; 82728; 82805; 82948; 83050; 83615; 83735; 83880; 84460; 85025; 85055; 85380; 85610; 86140; 86900; 86901; 87804; 93005; 93306; 93970; 94002; 94003; 94640; 99285; A9270; A9540; C1751; C9113; C9803; J0330; J0456; J0461; J0696; J1100; J1650; J1815; J1940; J2250; J3010; J7030; J7050; J7060; J7070; J7512; J8540; P9047; P9059; Q9967; U0003; U0005